=== PATIENT | male | born 1980 | race Caucasian/White ===

== ENCOUNTER 2018-11-01 08:46 | Inpatient (IN) | payer OTHER ==
[2018-11-01 09:33] VITALS: BMI 26.1
--- NOTE | 2018-11-01 10:17 | HP ---
CIWA Score Nausea/Vomitin Muscle Tremors: 2 Anxiety: 3 Agitation: 3 Paroxysmal Sweats: 1-Minimal Palms Moist Orientation: 0-Oriented Tacttile Disturbances: 1-Very Mild Itch/Numbness Auditory Disturbances: 0-None Visual Disturbances: 0-None Headache: 2-Mild CIWA-Ar Total Score: 15 - Admission Criteria [facility] Guidelines: Admission for Medically Managed Detox: Requires at least one of the followin. CIWA greater than 12 2. Seizures within the past 24 hours 3. Delirium tremens within the past 24 hours 4. Hallucinations within the past 24 hours 5. Acute intervention needed for co occurring medical disorder 6. Acute intervention needed for co occurring psychiatric disorder 7. Severe withdrawal that cannot be handled at a lower level of care (continued vomiting, continued diarrhea, abnormal vital signs) requiring intravenous medication and/or fluids 8. Admission ROS [facility] - [facility] Chief Complaint: i am here to stop drinking Allergies/Adverse Reactions: Allergies Allergy/AdvReac Type Severity Reaction Status Date / Time No Known Allergies Allergy Verified 11/01/18 09:19 History of Present Illness: this 37 years old male with alcohol dependence,seeking help to stop drinking, withdrawal symptom, seen in [facility] yesterday,receiving librium, extensive history of heavy alcohol consumption,multiple admissions in detox, last 09/27 at [facility] alcohol related seizure last 08/28 syncope alcohol related hepatitis c on medication now nicotine dependence 2 cigarette/day,does not need nicotine replacement no significant period of sobriety anxiety and depression plan for rehab after detox history of pancreatitis Exam Limitations: No Limitations - Ebola screening Have you traveled outside of the country in the last 21 days: No (N) Have you had contact with anyone from an Ebola affected area: No Do you have a fever: No - Review of Systems Constitutional: Loss of Appetite, Malaise, Night Sweats, Changes in sleep, Weakness EENT: reports: Tearing, Nose Congestion Respiratory: reports: No Symptoms reported Cardiac: reports: No Symptoms Reported GI: reports: Nausea, Poor Appetite, Abdominal cramping : reports: No Symptoms Reported Musculoskeletal: reports: Back Pain, Muscle Pain Integumentary: reports: Dryness Neuro: reports: Tremors Endocrine: reports: No Symptoms Reported Hematology: reports: No Symptoms Reported Psychiatric: reports: No Sypmtoms Reported, Judgement Intact, Mood/Affect Appropiate, Orientated x3, Anxious, Depressed, other Other Systems: Reviewed and Negative Patient History - Patient Medical History Hx Anemia: No Hx Asthma: No Hx Chronic Obstructive Pulmonary Disease (COPD): No Hx Cancer: No Hx Cardiac Disorders: No Hx Congestive Heart Failure: No Hx Hypertension: No Hx Hypercholesterolemia: No Hx Pacemaker: No HX Cerebrovascular Accident: No Hx Seizures: Yes (last 2 months) Hx Dementia: No Hx Diabetes: No Hx Gastrointestinal Disorders: No Hx Liver Disease: No Hx Genitourinary Disorders: No Hx Sexually Transmitted Disorders: No Hx Renal Disease (ESRD): No Hx Thyroid Disease: No Hx Human Immunodeficiency Virus (HIV): No (03/30 last negative) Hx Hepatitis C: Yes (being treated on medication now ,need 4 more days) Hx Depression: Yes (anxiety) Hx Suicide Attempt: No Hx Bipolar Disorder: No Hx Schizophrenia: No Other Medical History: no suicidal,no homicidal - Patient Surgical History Past Surgical History: Yes Other Surgical History: rhinoplasty in 2003 - PPD History Previous Implant?: Yes Documented Results: Negative w/o proof Implanted On Prior [facility] Admission?: No PPD to be Administered?: No - Smoking Cessation Smoking history: Current every day smoker Have you smoked in the past 12 months: Yes Aproximately how many cigarettes per day: 2 Cigars Per Day: 0 Hx Chewing Tobacco Use: No Initiated information on smoking cessation: No 'Breaking Loose' booklet given: 11/01/18 - Substance & Tx. History Hx Alcohol Use: Yes Hx Substance Use: No Substance Use Type: Alcohol Hx Substance Use Treatment: Yes ([facility] in 09/27) - Substances abused Alcohol Substance route: Oral Frequency: Daily Amount used: 4 CANS OF BEES (24 OUNCES), 1 PINT VODKA Age of first use: 30 Date of last use: 10/31/18 Family Disease History - Family Disease History Family Disease History: CA: Grandparent (alcohol,liver,pancrease), Other: Grandparent, Mother (multiple sclerosis) Admission Physical Exam [facility] - Vital Signs Vital Signs: Vital Signs - 24 hr 11/01/18 11/01/18 09:28 10:02 Temperature 97.6 F 97.6 F Pulse Rate 73 73 Respiratory 18 18 Rate Blood Pressure 133/92 133/92 - Physical General Appearance: Yes: Moderate Distress, Tremorous, Irritable, Sweating, Anxious HEENTM: Yes: Normal ENT Inspection, [place], Pharynx Normal Respiratory: Yes: Lungs Clear, Normal Breath Sounds, No Respiratory Distress Neck: Yes: Within Normal Limits, Supple, Trachea in good position Breast: Yes: Within Normal Limits Cardiology: Yes: Within Normal Limits, Regular Rhythm, Regular Rate, S1, S2 Abdominal: Yes: Within Normal Limits, Normal Bowel Sounds, Non Tender, Soft Genitourinary: Yes: Within Normal Limits Back: Yes: Muscle Spasm Musculoskeletal: Yes: Back pain, Muscle Pain Extremities: Yes: Tremors 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 NML intact, Fully Oriented, Alert, Motor Strength 5/5 Integumentary: Yes: Dry Lymphatic: Yes: Within Normal Limits - Diagnostic (1) Alcohol dependence with uncomplicated withdrawal Current Visit: Yes Status: Acute (2) Alcohol related seizure Current Visit: Yes Status: Acute (3) Syncope Current Visit: Yes Status: Acute (4) Nicotine dependence Current Visit: Yes Status: Chronic (5) Insomnia secondary to depression with anxiety Current Visit: Yes Status: Acute (6) Hepatitis C Current Visit: Yes Status: Acute (7) History of pancreatitis Current Visit: Yes Status: Acute Cleared for Admission S - Detox or Rehab [facility] Level of Care: Medically Managed (ativan detox) Breathalyzer - Breathalyzer Breathalyzer: 0.060 Urine Drug Screen - Test Device Lot number: [id number] Expiration date: 08/09/20 - Control Is test valid?: Yes - Results Drug screen NEGATIVE: No Urine drug screen results: BZO-Benzodiazepines Inpatient Rehab Admission - Rehab Decision to Admit Inpatient rehab admission?: No
[2018-11-01] MEDS ORDERED: MAGNESIUM CITRATE 300 ML BOTTLE PO PRN (10:32)
[2018-11-01] MEDS ORDERED: IBUPROFEN 400 MG TABLET (FP) PO PRN (10:32)
[2018-11-01] MEDS ORDERED: METHOCARBAMOL 500 MG TABLET PO PRN (10:32)
[2018-11-01] MEDS ORDERED: MENTHOL/PHENOL 1 EACH UD MM PRN (10:32)
[2018-11-01] MEDS ORDERED: MAG HYDROX/AL HYDROX/SIMETH 30 ML UNIT-DOSE CUP PO PRN (10:32)
[2018-11-01] MEDS ORDERED: BISMUTH SUBSALICYLATE 524 MG/30 ML UD PO PRN (10:32)
[2018-11-01] MEDS ORDERED: MAGNESIUM HYDROX 2400MG/30ML ORAL SUSPENSION 30 ML CUP PO PRN (10:32)
[2018-11-01] MEDS ORDERED: LORazepam 1 MG TABLET PO PRN (10:32)
[2018-11-01] MEDS ORDERED: hydrOXYzine PAMOATE 25 MG CAPSULE (FP) PO PRN (10:32)
[2018-11-01] MEDS ORDERED: ACETAMINOPHEN 325 MG TABLET (FP) PO PRN ×2 (10:32)
[2018-11-01] MEDS ORDERED: PATIENT'S OWN MEDICATION (NON-FORMULARY) (Glecaprevir/Pibrentasvir [Mavyret 100-40 Mg Tabl PO SCH (10:45)
[2018-11-01] MEDS: ESCITALOPRAM OXALATE 20 MG TABLET (FP) PO SCH (11:31)
--- NOTE | 2018-11-01 11:47 | EKG ---
Test Reason : Blood Pressure : / mmHG Vent. Rate : 061 BPM Atrial Rate : 061 BPM P-R Int : 144 ms QRS Dur : 092 ms QT Int : 462 ms P-R-T Axes : 038 039 038 degrees QTc Int : 465 ms NORMAL SINUS RHYTHM NORMAL ECG NO PREVIOUS ECGS AVAILABLE Confirmed by KECIA MARTÍNEZ MD ([id number]) on 11/01/2018 11:46:34 AM Referred By: Confirmed By:KECIA MARTÍNEZ MD
[2018-11-01 14:49] LABS: HEMATOCRIT 36.5 % (35.4-49); HEMOGLOBIN 12.3 GM/dL (11.7-16.9); MCH 28.6 pg (25.7-33.7); MCHC 33.7 g/dl (32.0-35.9); MEAN CELL VOLUME 84.9 fl (80-96); MEAN PLT VOLUME 7.9 fl (7.5-11.1); PLATELET COUNT 238 K/MM3 (134-434); RDW 15.1 % (11.9-15.9); WHITE BLOOD COUNT 4.4 K/mm3 (4.0-10.0)
[2018-11-01 15:49] LABS: ALBUMIN 4.4 g/dl (3.4-5.0); BILIRUBIN,TOTAL 0.4 mg/dL (0.2-1); BLOOD UREA NITROGEN 9.8 mg/dL (7-18); CALCIUM 8.9 mg/dL (8.5-10.1); CREATININE 0.7 mg/dL (0.55-1.3); POTASSIUM 3.7 mmol/L (3.5-5.1); TOT PROT 9.1 g/dl (6.4-8.2)
[2018-11-01] MEDS: SELENIUM SULFIDE 2.5% LOTION 4 OZ. TP SCH (15:49)
--- NOTE | 2018-11-01 17:06 | PN ---
S Progress Note Note: Psychiatric nurs practitioner note: Senior Business Broker approached patient for psychiatric consultation. Patient reports feeling too tired to speak to jingle writer. Psychiatric consultation deferred.
[2018-11-01] MEDS: LORazepam 2 MG TABLET PO SCH ×2 (17:19→22:13)
[2018-11-01] MEDS: THIAMINE HCL 100 MG TABLET (FP) PO SCH (22:13)
[2018-11-01] MEDS: MELATONIN 5 MG TABLETS PO PRN (22:13)
[2018-11-02] MEDS: LORazepam 2 MG TABLET PO SCH ×4 (06:16→22:51)
[2018-11-02] MEDS: PATIENT'S OWN MEDICATION (NON-FORMULARY) (Glecaprevir/Pibrentasvir [Mavyret 100-40 Mg Tabl PO SCH (10:15)
[2018-11-02] MEDS: ESCITALOPRAM OXALATE 20 MG TABLET (FP) PO SCH (10:15)
[2018-11-02] MEDS: PRENATAL VITAMINS W/ FOLIC ACID TABLET (FP) PO SCH (10:15)
[2018-11-02] MEDS: SELENIUM SULFIDE 2.5% LOTION 4 OZ. TP SCH (10:18)
--- NOTE | 2018-11-02 11:28 | PN ---
S CIWA - CIWA Score Nausea/Vomitin-No Nausea/No Vomiting Muscle Tremors: 2 Anxiety: 3 Agitation: 0-Normal Activity Paroxysmal Sweats: 3 Orientation: 0-Oriented Tacttile Disturbances: 0-None Auditory Disturbances: 0-None Visual Disturbances: 0-None Headache: 2-Mild CIWA-Ar Total Score: 10 S Progress Note (SOAP) Subjective: c/o mild shakes, headache, anxiety, and sweats. Objective: 11/02/18 11:28 Vital Signs 11/02/18 11/02/18 11/02/18 04:15 06:00 09:54 Temperature 97.3 F L 97.3 F L Pulse Rate 54 L 58 L Respiratory 18 18 16 Rate Blood Pressure 123/73 134/72 Lab Results WBC 4.4 K/mm3 (4.0-10.0) 11/01/18 11:00 RBC 4.30 M/mm3 (4.00-5.60) 11/01/18 11:00 Hgb 12.3 GM/dL (11.7-16.9) 11/01/18 11:00 Hct 36.5 % (35.4-49) 11/01/18 11:00 MCV 84.9 fl (80-96) 11/01/18 11:00 MCHC 33.7 g/dl (32.0-35.9) 11/01/18 11:00 RDW 15.1 % (11.9-15.9) 11/01/18 11:00 Plt Count 238 K/MM3 (134-434) 11/01/18 11:00 Sodium 140 mmol/L (136-145) 11/01/18 11:00 Potassium 3.7 mmol/L (3.5-5.1) 11/01/18 11:00 Chloride 103 mmol/L (98-107) 11/01/18 11:00 Carbon Dioxide 29 mmol/L (21-32) 11/01/18 11:00 Anion Gap 8 MMOL/L (8-16) 11/01/18 11:00 BUN 9.8 mg/dL (7-18) 11/01/18 11:00 Creatinine 0.7 mg/dL (0.55-1.3) 11/01/18 11:00 Random Glucose 103 mg/dL (74-106) 11/01/18 11:00 Calcium 8.9 mg/dL (8.5-10.1) 11/01/18 11:00 Labs noted. Assessment: 11/02/18 11:28 AOX3, in no acute respiratory distress. Full ROM, ambulating in the unit. Withdrawal symptoms. Plan: continue detox.
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
[2018-11-02] MEDS: THIAMINE HCL 100 MG TABLET (FP) PO SCH (22:51)
[2018-11-02] MEDS: MELATONIN 5 MG TABLETS PO PRN (22:53)
[2018-11-03] MEDS: LORazepam 1 MG TABLET PO SCH ×4 (05:35→22:42)
[2018-11-03] MEDS: PATIENT'S OWN MEDICATION (NON-FORMULARY) (Glecaprevir/Pibrentasvir [Mavyret 100-40 Mg Tabl PO SCH (10:01)
[2018-11-03] MEDS: PRENATAL VITAMINS W/ FOLIC ACID TABLET (FP) PO SCH (10:02)
[2018-11-03] MEDS: ESCITALOPRAM OXALATE 20 MG TABLET (FP) PO SCH (10:02)
[2018-11-03] MEDS: SELENIUM SULFIDE 2.5% LOTION 4 OZ. TP SCH (10:02)
--- NOTE | 2018-11-03 15:07 | PN ---
S CIWA - CIWA Score Nausea/Vomitin-Mild Nausea/No Vomiting Muscle Tremors: None Anxiety: 3 Agitation: 2 Paroxysmal Sweats: 3 Orientation: 0-Oriented Tacttile Disturbances: 0-None Auditory Disturbances: 0-None Visual Disturbances: 0-None Headache: 0-None Present CIWA-Ar Total Score: 9 BHS Progress Note (SOAP) Subjective: Tremor, sweating, interrupted sleep Objective: 11/03/18 15:04 Last Vital Signs Temp Pulse Resp BP Pulse Ox 97.5 F L 71 16 133/106 H 11/03/18 09:31 11/03/18 09:31 11/03/18 09:31 11/03/18 09:31 Elevated b/p 133/106 (denies htn) Laboratory Tests 11/01/18 11/01/18 11/01/18 11:00 11:00 11:00 WBC 4.4 RBC 4.30 Hgb 12.3 Hct 36.5 MCV 84.9 MCH 28.6 MCHC 33.7 RDW 15.1 Plt Count 238 MPV 7.9 Sodium 140 Potassium 3.7 Chloride 103 Carbon Dioxide 29 Anion Gap 8 BUN 9.8 Creatinine 0.7 Est GFR (CKD-EPI)AfAm 141.70 Est GFR (CKD-EPI)NonAf 122.26 Random Glucose 103 Calcium 8.9 Total Bilirubin 0.4 AST 57 H ALT 55 Alkaline Phosphatase 108 Total Protein 9.1 H Albumin 4.4 RPR Titer Nonreactive Labs reviewed: total protein elevated (9.1) Assessment: 11/03/18 15:07 Withdrawal sxs Noted with elevated blood pressure and elevated total protein Plan: Continue detox Encouraged PO water intake Elevated b/p: clonidine prn Elevated total protein: could be r/t dehydration; encouraged to drink more water , repeat hepatic function panel, check UA
[2018-11-03] MEDS ORDERED: cloNIDine HCL 0.1 MG TABLET PO PRN (15:09)
[2018-11-03] MEDS: THIAMINE HCL 100 MG TABLET (FP) PO SCH (22:42)
[2018-11-03] MEDS: MELATONIN 5 MG TABLETS PO PRN (22:43)
[2018-11-04] MEDS ORDERED: LORazepam 0.5 MG TABLET PO PRN
[2018-11-04] MEDS: LORazepam 0.5 MG TABLET PO SCH ×4 (05:49→22:09)
[2018-11-04] MEDS: PRENATAL VITAMINS W/ FOLIC ACID TABLET (FP) PO SCH (10:08)
[2018-11-04] MEDS: ESCITALOPRAM OXALATE 20 MG TABLET (FP) PO SCH (10:09)
[2018-11-04] MEDS: PATIENT'S OWN MEDICATION (NON-FORMULARY) (Glecaprevir/Pibrentasvir [Mavyret 100-40 Mg Tabl PO SCH (10:09)
[2018-11-04] MEDS: SELENIUM SULFIDE 2.5% LOTION 4 OZ. TP SCH (10:11)
[2018-11-04 12:20] LABS: ALBUMIN 4.4 g/dl (3.4-5.0); BILIRUBIN,DIRECT 0.2 mg/dL (0.0-0.2); BILIRUBIN,TOTAL 0.5 mg/dL (0.2-1); TOT PROT 9.1 g/dl (6.4-8.2)
--- NOTE | 2018-11-04 13:21 | PN ---
[facility] CIWA - CIWA Score Nausea/Vomitin-Mild Nausea/No Vomiting Muscle Tremors: 2 Anxiety: 1-Mildly Anxious Agitation: 1-Slight > Activity Paroxysmal Sweats: No Perspiration Orientation: 0-Oriented Tacttile Disturbances: 0-None Auditory Disturbances: 0-None Visual Disturbances: 0-None Headache: 0-None Present CIWA-Ar Total Score: 5 BHS Progress Note (SOAP) Subjective: pt has no complaints O: Vital Signs - 24 hr 11/03/18 11/04/18 11/04/18 21:25 00:30 03:00 Temperature 99.0 F Pulse Rate 94 H Respiratory 16 18 18 Rate Blood Pressure 133/85 11/04/18 11/04/18 06:00 09:22 Temperature 97.3 F L 97.9 F Pulse Rate 58 L 70 Respiratory 18 18 Rate Blood Pressure 127/72 121/52 L Laboratory Tests 11/01/18 11/01/18 11/01/18 11:00 11:00 11:00 WBC 4.4 RBC 4.30 Hgb 12.3 Hct 36.5 MCV 84.9 MCH 28.6 MCHC 33.7 RDW 15.1 Plt Count 238 MPV 7.9 Sodium 140 Potassium 3.7 Chloride 103 Carbon Dioxide 29 Anion Gap 8 BUN 9.8 Creatinine 0.7 Est GFR (CKD-EPI)AfAm 141.70 Est GFR (CKD-EPI)NonAf 122.26 Random Glucose 103 Calcium 8.9 Total Bilirubin 0.4 Direct Bilirubin AST 57 H ALT 55 Alkaline Phosphatase 108 Total Protein 9.1 H Albumin 4.4 RPR Titer Nonreactive 11/04/18 08:23 WBC RBC Hgb Hct MCV MCH MCHC RDW Plt Count MPV Sodium Potassium Chloride Carbon Dioxide Anion Gap BUN Creatinine Est GFR (CKD-EPI)AfAm Est GFR (CKD-EPI)NonAf Random Glucose Calcium Total Bilirubin 0.5 Direct Bilirubin 0.2 AST 36 ALT 44 Alkaline Phosphatase 103 Total Protein 9.1 H Albumin 4.4 RPR Titer alert and oriented a/p: continue alcohol detox protocol pt doing well
[2018-11-04 21:22] VITALS: TEMP 97.7
[2018-11-04] MEDS: MELATONIN 5 MG TABLETS PO PRN (22:09)
[2018-11-04] MEDS: THIAMINE HCL 100 MG TABLET (FP) PO SCH (22:09)
[2018-11-05] MEDS ORDERED: LORazepam 0.5 MG TABLET PO ONE (05:00)
[2018-11-05 07:04] VITALS: BP 104/58; PULSE 60
[2018-11-05] MEDS: ESCITALOPRAM OXALATE 20 MG TABLET (FP) PO SCH (09:00)
[2018-11-05] MEDS: PATIENT'S OWN MEDICATION (NON-FORMULARY) (Glecaprevir/Pibrentasvir [Mavyret 100-40 Mg Tabl PO SCH (09:01)
[2018-11-05] MEDS: PRENATAL VITAMINS W/ FOLIC ACID TABLET (FP) PO SCH (09:01)
[2018-11-05] MEDS: SELENIUM SULFIDE 2.5% LOTION 4 OZ. TP SCH (09:02)
--- NOTE | 2018-11-05 09:48 | DS ---
[facility] Detox Discharge Summary Admission Date: 11/01/18 Discharge Date: 11/05/18 - History Present History: Alcohol Dependence - Physical Exam Results Vital Signs: Vital Signs Temperature 97.7 F 11/05/18 07:03 Pulse Rate 60 11/05/18 07:03 Respiratory Rate 18 11/05/18 07:03 Blood Pressure 104/58 L 11/05/18 07:03 O2 Sat by Pulse Oximetry (%) Pertinent Admission Physical Exam Findings: pt arrived in withdrawals Laboratory Tests 11/01/18 11/01/18 11/01/18 11:00 11:00 11:00 WBC 4.4 RBC 4.30 Hgb 12.3 Hct 36.5 MCV 84.9 MCH 28.6 MCHC 33.7 RDW 15.1 Plt Count 238 MPV 7.9 Sodium 140 Potassium 3.7 Chloride 103 Carbon Dioxide 29 Anion Gap 8 BUN 9.8 Creatinine 0.7 Est GFR (CKD-EPI)AfAm 141.70 Est GFR (CKD-EPI)NonAf 122.26 Random Glucose 103 Calcium 8.9 Total Bilirubin 0.4 Direct Bilirubin AST 57 H ALT 55 Alkaline Phosphatase 108 Total Protein 9.1 H Albumin 4.4 RPR Titer Nonreactive 11/04/18 08:23 WBC RBC Hgb Hct MCV MCH MCHC RDW Plt Count MPV Sodium Potassium Chloride Carbon Dioxide Anion Gap BUN Creatinine Est GFR (CKD-EPI)AfAm Est GFR (CKD-EPI)NonAf Random Glucose Calcium Total Bilirubin 0.5 Direct Bilirubin 0.2 AST 36 ALT 44 Alkaline Phosphatase 103 Total Protein 9.1 H Albumin 4.4 RPR Titer today pt is aaox3 ambulating no acute distress no s/s of withdrawals - Treatment Hospital Course: Detox Protocol Followed, Detoxed Safely, Responded well, Discharged Condition Good, Rehab Referral Accepted Patient has Accepted a Rehab Referral to: referred to outpatient - Medication Discharge Medications: Ambulatory Orders Escitalopram Oxalate [Lexapro -] 20 mg PO DAILY 11/01/18 Folic Acid - 1 mg PO DAILY 11/01/18 Glecaprevir/Pibrentasvir [Mavyret 100-40 mg Tablet] 3 tab PO DAILY 11/01/18 Magnesium Oxide [Magnesium] 400 mg PO TID 11/01/18 Selenium Sulfide [Selenium Sulfide 2.25% Shampoo] 1 applic TP DAILY 11/01/18 Thiamine Mononitrate [Vitamin B-1] 100 mg PO DAILY 11/01/18 - Diagnosis (1) Alcohol dependence with uncomplicated withdrawal Current Visit: Yes Status: Chronic (2) Hepatitis C Current Visit: Yes Status: Chronic Qualifiers: Viral hepatitis chronicity: chronic Hepatic coma status: without hepatic coma Qualified Code(s): B18.2 - Chronic viral hepatitis C (3) History of pancreatitis Current Visit: Yes Status: Chronic (4) Insomnia secondary to depression with anxiety Current Visit: Yes Status: Chronic (5) Syncope Current Visit: Yes Status: Chronic (6) History of depression Current Visit: Yes Status: Chronic (7) History of posttraumatic stress disorder (PTSD) Current Visit: Yes Status: Chronic (8) Nicotine dependence Current Visit: Yes Status: Chronic Qualifiers: Nicotine product type: cigarettes Substance use status: uncomplicated Qualified Code(s): F17.210 - Nicotine dependence, cigarettes, uncomplicated - AMA Did Patient Leave Against Medical Advice: No
== END 2018-11-05 09:26 | disposition home or self-care (01) | DRG 775 ==
LOC: YASAS 08:46 → Y6N 10:54
PROVIDERS: ADMIT Surgery; ATTEND Surgery
PROC: HZ2ZZZZ Detoxification Services for Substance Abuse Treatment (ICD-10-PCS; principal; 2018-11-01)
DX: F10.230 Alcohol dependence with withdrawal, uncomplicated (principal); F17.210 Nicotine dependence, cigarettes, uncomplicated; F51.05 Insomnia due to other mental disorder; F32.9 Major depressive disorder, single episode, unspecified; B18.2 Chronic viral hepatitis C; G40.509 Epileptic seizures related to external causes, not intractable, without status epilepticus; Z86.59 Personal history of other mental and behavioral disorders; Z87.19 Personal history of other diseases of the digestive system; R55 Syncope and collapse
CPT/HCPCS: 36415; 80053; 80076; 85027; 86480; 86593; 93005; 93010

== ENCOUNTER 2019-01-13 14:22 | Inpatient (IN) | payer OTHER ==
--- NOTE | 2019-01-13 14:29 | HP ---
CIWA Score Nausea/Vomitin-No Nausea/No Vomiting Muscle Tremors: 4-Moderate,w/Arms Extend Anxiety: 4-Mod. Anxious/Guarded Agitation: 4-Moderately Restless Paroxysmal Sweats: 3 Orientation: 0-Oriented Tacttile Disturbances: 0-None Auditory Disturbances: 0-None Visual Disturbances: 0-None Headache: 1-Very Mild CIWA-Ar Total Score: 16 - Admission Criteria OASAS Guidelines: Admission for Medically Managed Detox: Requires at least one of the followin. CIWA greater than 12 2. Seizures within the past 24 hours 3. Delirium tremens within the past 24 hours 4. Hallucinations within the past 24 hours 5. Acute intervention needed for co occurring medical disorder 6. Acute intervention needed for co occurring psychiatric disorder 7. Severe withdrawal that cannot be handled at a lower level of care (continued vomiting, continued diarrhea, abnormal vital signs) requiring intravenous medication and/or fluids 8. Admitting History and Physical - Primary Care Physician PCP: - Admission Chief Complaint: I am here for detox. I was at [facility] [place] overnight for alcohol detox. History Source: Patient Limitations to Obtaining History: No Limitations - Past Medical History [employer]: Yes: Seizure (ETOH related seizure last one a week ago) Psych: Yes: Depression ENT: Yes: Other Dermatology: Yes: Eczema - Past Surgical History Past Surgical History: Yes: None - Smoking History Smoking history: Current every day smoker Have you smoked in the past 12 months: Yes Aproximately how many cigarettes per day: 3 - Alcohol/Substance Use Hx Alcohol Use: Yes History of Substance Use: reports: None - Social History Usual Living Arrangement: Yes: Alone, Other (has a roommate) Do you think of yourself as: Panchal, Lesbian or Homosexual ADL: Independent History of Recent Travel: No Admission ROS [facility] Chief Complaint: I am here for detox. Allergies/Adverse Reactions: Allergies Allergy/AdvReac Type Severity Reaction Status Date / Time No Known Allergies Allergy Verified 11/01/18 09:19 History of Present Illness: Pt is a 38yrold male with a history of alcohol dependence seeking detox for treatment. Exam Limitations: No Limitations - Ebola screening Have you traveled outside of the country in the last 21 days: No (N) Have you had contact with anyone from an Ebola affected area: No Have you been sick,other than usual withdrawal symptoms: No Do you have a fever: No - Review of Systems Constitutional: Chills, Diaphoresis, Loss of Appetite, Night Sweats EENT: reports: Tearing Respiratory: reports: No Symptoms reported Cardiac: reports: Syncope GI: reports: Nausea, Poor Appetite, Poor Fluid Intake, Abdominal cramping : reports: No Symptoms Reported Musculoskeletal: reports: Back Pain Integumentary: reports: Dryness (on scalp), Flushing, Sweating Neuro: reports: Headache, Seizure (last seizure a week ago; on medication), Tingling Endocrine: reports: Excessive Sweating, Flushing, Intolerance to Cold, Intolerance to Heat Hematology: reports: No Symptoms Reported Psychiatric: reports: Judgement Intact, Mood/Affect Appropiate, Orientated x3, Agitated, Anxious Other Systems: Reviewed and Negative Patient History - Patient Medical History Hx Anemia: No Hx Asthma: No Hx Chronic Obstructive Pulmonary Disease (COPD): No Hx Cancer: No Hx Cardiac Disorders: No Hx Congestive Heart Failure: No Hx Hypertension: No Hx Hypercholesterolemia: No Hx Pacemaker: No HX Cerebrovascular Accident: No Hx Seizures: Yes (last 1 week ago) Hx Dementia: No Hx Diabetes: No Hx Gastrointestinal Disorders: No Hx Liver Disease: No Hx Genitourinary Disorders: No Hx Sexually Transmitted Disorders: No Hx Renal Disease (ESRD): No Hx Thyroid Disease: No Hx Human Immunodeficiency Virus (HIV): No (03/30 last negative) Hx Hepatitis C: Yes (being treated on medication now ,need 4 more days) Hx Depression: Yes (anxiety) Hx Suicide Attempt: No Hx Bipolar Disorder: No Hx Schizophrenia: No Other Medical History: PTSD - Patient Surgical History Past Surgical History: Yes Other Surgical History: rhinoplasty in 2003 - PPD History Previous Implant?: Yes Documented Results: Negative w/proof Implanted On Prior R Admission?: No PPD to be Administered?: No - Reproductive History Patient is a Female of Child Bearing Age (11 -55 yrs old): No - Smoking Cessation Smoking history: Current every day smoker Have you smoked in the past 12 months: Yes Aproximately how many cigarettes per day: 3 Cigars Per Day: 0 Hx Chewing Tobacco Use: No Initiated information on smoking cessation: Yes 'Breaking Loose' booklet given: 01/13/19 - Substance & Tx. History Hx Alcohol Use: Yes Hx Substance Use: No Substance Use Type: Alcohol Hx Substance Use Treatment: Yes (last detox 10/2018) - Substances abused Alcohol Substance route: Oral Frequency: Daily Amount used: 4 CANS OF BEES (24 OUNCES), 1 PINT VODKA Age of first use: 30 Date of last use: 10/31/18 Admission Physical Exam [facility] - Physical General Appearance: Yes: Appropriately Dressed, Moderate Distress, Tremorous, Irritable, Sweating, Anxious HEENTM: Yes: Normocephalic, Normal Voice, Hearing Decreased, Nasal Congestion, Rhinorrhea Respiratory: Yes: Lungs Clear, Normal Breath Sounds, No Respiratory Distress Neck: Yes: No masses,lesions,Nodules Breast: Yes: Within Normal Limits Cardiology: Yes: Regular Rhythm, Regular Rate, S1, S2 Abdominal: Yes: Normal Bowel Sounds, Non Tender, Soft Genitourinary: Yes: Within Normal Limits Back: Yes: Normal Inspection Musculoskeletal: Yes: full range of Motion, Back pain Extremities: Yes: Normal Capillary Refill, Normal Inspection, Tremors Neurological: Yes: Fully Oriented, Alert, Normal Response Integumentary: Yes: Within Normal Limits, Normal Color, Diaphoresis Lymphatic: Yes: Within Normal Limits - Diagnostic (1) Alcohol dependence with uncomplicated withdrawal Current Visit: Yes Status: Chronic (2) Hepatitis C Current Visit: Yes Status: Chronic Qualifiers: Viral hepatitis chronicity: chronic Hepatic coma status: without hepatic coma Qualified Code(s): B18.2 - Chronic viral hepatitis C (3) History of depression Current Visit: No Status: Chronic (4) History of pancreatitis Current Visit: No Status: Chronic (5) History of posttraumatic stress disorder (PTSD) Current Visit: Yes Status: Chronic (6) Insomnia secondary to depression with anxiety Current Visit: No Status: Chronic (7) Nicotine dependence Current Visit: Yes Status: Chronic Qualifiers: Nicotine product type: cigarettes Substance use status: uncomplicated Qualified Code(s): F17.210 - Nicotine dependence, cigarettes, uncomplicated (8) Syncope Current Visit: Yes Status: Suspected Qualifiers: Syncope type: unspecified Qualified Code(s): R55 - Syncope and collapse Cleared for Admission [facility] - Detox or Rehab [facility] Level of Care: Medically Managed Detox Regimen/Protocol: Librium Breathalyzer - Breathalyzer Breathalyzer: 0.060 Urine Drug Screen - Test Device Lot number: [id number] Expiration date: 08/09/20 - Control Is test valid?: Yes - Results Drug screen NEGATIVE: No Urine drug screen results: BZO-Benzodiazepines Inpatient Rehab Admission - Rehab Decision to Admit Inpatient rehab admission?: No
[2019-01-13 14:32] VITALS: BMI 24.1
[2019-01-13] MEDS ORDERED: ONDANSETRON *ODT* 4 MG TABLET SL PRN (14:38)
[2019-01-13] MEDS ORDERED: MAG HYDROX/AL HYDROX/SIMETH 30 ML UNIT-DOSE CUP PO PRN (14:38)
[2019-01-13] MEDS ORDERED: MENTHOL/PHENOL 1 EACH UD MM PRN (14:38)
[2019-01-13] MEDS ORDERED: MELATONIN 5 MG TABLETS PO PRN (14:38)
[2019-01-13] MEDS ORDERED: MAGNESIUM CITRATE 300 ML BOTTLE PO PRN (14:38)
[2019-01-13] MEDS ORDERED: IBUPROFEN 400 MG TABLET (FP) PO PRN (14:38)
[2019-01-13] MEDS ORDERED: MAGNESIUM HYDROX 2400MG/30ML ORAL SUSPENSION 30 ML CUP PO PRN (14:38)
[2019-01-13] MEDS ORDERED: ACETAMINOPHEN 325 MG TABLET (FP) PO PRN ×2 (14:38)
[2019-01-13] MEDS ORDERED: BISMUTH SUBSALICYLATE 262 MG/15 ML BTL PO PRN (14:38)
[2019-01-13] MEDS: chlordiazePOXIDE HCL 25 MG CAPSULE PO PRN ×2 (15:25→20:11)
[2019-01-13] MEDS: METHOCARBAMOL 500 MG TABLET PO PRN (15:25)
[2019-01-13] MEDS ORDERED: chlordiazePOXIDE HCL 25 MG CAPSULE PO ONE ×2 (15:50→18:15)
[2019-01-13 16:09] LABS: HEMATOCRIT 37.6 % (35.4-49); MCH 29.6 pg (25.7-33.7); MCHC 34.5 g/dl (32.0-35.9); MEAN CELL VOLUME 85.7 fl (80-96); MEAN PLT VOLUME 8.2 fl (7.5-11.1); PLATELET COUNT 421 K/MM3 (134-434); RBC 4.39 M/mm3 (4.00-5.60); RDW 15.2 % (11.9-15.9); WHITE BLOOD COUNT 6.5 K/mm3 (4.0-10.0)
[2019-01-13 16:20] LABS: ALBUMIN 4.5 g/dl (3.4-5.0); BILIRUBIN,TOTAL 0.6 mg/dL (0.2-1); BLOOD UREA NITROGEN 9.9 mg/dL (7-18); CALCIUM 9.6 mg/dL (8.5-10.1); CREATININE 0.8 mg/dL (0.55-1.3); POTASSIUM 4.1 mmol/L (3.5-5.1); TOT PROT 9.5 g/dl (6.4-8.2)
[2019-01-13] MEDS ORDERED: chlordiazePOXIDE HCL 25 MG CAPSULE PO SCH (17:00)
[2019-01-13] MEDS: hydrOXYzine PAMOATE 25 MG CAPSULE (FP) PO PRN (20:10)
[2019-01-13] MEDS: chlordiazePOXIDE HCL 25 MG CAPSULE PO SCH ×2 (22:31→22:40)
[2019-01-13] MEDS: THIAMINE HCL 100 MG TABLET (FP) PO SCH (22:32)
[2019-01-13] MEDS: levETIRAcetam 500 MG TABLET (FP) PO SCH (22:32)
[2019-01-14] MEDS: chlordiazePOXIDE HCL 25 MG CAPSULE PO SCH ×4 (05:45→22:27)
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
[2019-01-14] MEDS ORDERED: PATIENT'S OWN MEDICATION (NON-FORMULARY) (Glecaprevir/Pibrentasvir [Mavyret 100-40 Mg Tabl PO SCH (10:00)
[2019-01-14] MEDS: levETIRAcetam 500 MG TABLET (FP) PO SCH ×2 (10:33→22:26)
[2019-01-14] MEDS: PRENATAL VITAMINS W/ FOLIC ACID TABLET (FP) PO SCH (10:33)
[2019-01-14] MEDS: ESCITALOPRAM OXALATE 20 MG TABLET (FP) PO SCH (10:33)
[2019-01-14] MEDS: GABAPENTIN 300 MG CAPSULE (FP) PO SCH ×2 (10:33→22:26)
--- NOTE | 2019-01-14 12:03 | PN ---
S CIWA - CIWA Score Nausea/Vomitin-Mild Nausea/No Vomiting Muscle Tremors: 2 Anxiety: 2 Agitation: 2 Paroxysmal Sweats: No Perspiration Orientation: 0-Oriented Tacttile Disturbances: 1-Very Mild Itch/Numbness Auditory Disturbances: 0-None Visual Disturbances: 0-None Headache: 2-Mild CIWA-Ar Total Score: 10 BHS Progress Note (SOAP) Subjective: alert,irritable,anxious,interrupted sleep,tremor Objective: 01/14/19 12:03 Vital Signs Temperature 98.4 F 01/14/19 09:20 Pulse Rate 80 01/14/19 09:20 Respiratory Rate 18 01/14/19 09:20 Blood Pressure 139/76 01/14/19 09:20 O2 Sat by Pulse Oximetry (%) 01/14/19 12:03 Laboratory Last Values WBC 6.5 K/mm3 (4.0-10.0) 01/13/19 15:05 RBC 4.39 M/mm3 (4.00-5.60) 01/13/19 15:05 Hgb 13.0 GM/dL (11.7-16.9) 01/13/19 15:05 Hct 37.6 % (35.4-49) 01/13/19 15:05 MCV 85.7 fl (80-96) 01/13/19 15:05 MCH 29.6 pg (25.7-33.7) 01/13/19 15:05 MCHC 34.5 g/dl (32.0-35.9) 01/13/19 15:05 RDW 15.2 % (11.9-15.9) 01/13/19 15:05 Plt Count 421 K/MM3 (134-434) D 01/13/19 15:05 MPV 8.2 fl (7.5-11.1) 01/13/19 15:05 Sodium 136 mmol/L (136-145) 01/13/19 15:05 Potassium 4.1 mmol/L (3.5-5.1) 01/13/19 15:05 Chloride 99 mmol/L (98-107) 01/13/19 15:05 Carbon Dioxide 28 mmol/L (21-32) 01/13/19 15:05 Anion Gap 9 MMOL/L (8-16) 01/13/19 15:05 BUN 9.9 mg/dL (7-18) 01/13/19 15:05 Creatinine 0.8 mg/dL (0.55-1.3) 01/13/19 15:05 Est GFR (CKD-EPI)AfAm 133.20 01/13/19 15:05 Est GFR (CKD-EPI)NonAf 114.93 01/13/19 15:05 Random Glucose 82 mg/dL (74-106) 01/13/19 15:05 Calcium 9.6 mg/dL (8.5-10.1) 01/13/19 15:05 Total Bilirubin 0.6 mg/dL (0.2-1) 01/13/19 15:05 AST 48 U/L (15-37) H 01/13/19 15:05 ALT 60 U/L (13-61) 01/13/19 15:05 Alkaline Phosphatase 84 U/L (45-117) 01/13/19 15:05 Total Protein 9.5 g/dl (6.4-8.2) H 01/13/19 15:05 Albumin 4.5 g/dl (3.4-5.0) 01/13/19 15:05 01/14/19 12:04 rpr pending Assessment: 01/14/19 12:04 withdrawal symptom Plan: continue detox librium regimen
[2019-01-14] MEDS: chlordiazePOXIDE HCL 25 MG CAPSULE PO PRN (14:15)
[2019-01-14] MEDS: THIAMINE HCL 100 MG TABLET (FP) PO SCH (22:26)
[2019-01-14] MEDS: SUVOREXANT 10 MG TABLET PO PRN (22:28)
[2019-01-15] MEDS: chlordiazePOXIDE HCL 25 MG CAPSULE PO SCH ×4 (06:43→23:21)
--- NOTE | 2019-01-15 11:39 | PN ---
S CIWA - CIWA Score Nausea/Vomitin-Mild Nausea/No Vomiting Muscle Tremors: 1-None Visible, but [place] Anxiety: 2 Agitation: 2 Paroxysmal Sweats: No Perspiration Orientation: 0-Oriented Tacttile Disturbances: 1-Very Mild Itch/Numbness Auditory Disturbances: 0-None Visual Disturbances: 0-None Headache: 1-Very Mild CIWA-Ar Total Score: 8 BHS Progress Note (SOAP) Subjective: alert,irritable,anxious,interrupted sleep,pain in the body Objective: 01/15/19 11:38 Vital Signs Temperature 97.6 F 01/15/19 09:20 Pulse Rate 73 01/15/19 09:20 Respiratory Rate 18 01/15/19 09:20 Blood Pressure 122/78 01/15/19 09:20 O2 Sat by Pulse Oximetry (%) Laboratory Last Values WBC 6.5 K/mm3 (4.0-10.0) 01/13/19 15:05 RBC 4.39 M/mm3 (4.00-5.60) 01/13/19 15:05 Hgb 13.0 GM/dL (11.7-16.9) 01/13/19 15:05 Hct 37.6 % (35.4-49) 01/13/19 15:05 MCV 85.7 fl (80-96) 01/13/19 15:05 MCH 29.6 pg (25.7-33.7) 01/13/19 15:05 MCHC 34.5 g/dl (32.0-35.9) 01/13/19 15:05 RDW 15.2 % (11.9-15.9) 01/13/19 15:05 Plt Count 421 K/MM3 (134-434) D 01/13/19 15:05 MPV 8.2 fl (7.5-11.1) 01/13/19 15:05 Sodium 136 mmol/L (136-145) 01/13/19 15:05 Potassium 4.1 mmol/L (3.5-5.1) 01/13/19 15:05 Chloride 99 mmol/L (98-107) 01/13/19 15:05 Carbon Dioxide 28 mmol/L (21-32) 01/13/19 15:05 Anion Gap 9 MMOL/L (8-16) 01/13/19 15:05 BUN 9.9 mg/dL (7-18) 01/13/19 15:05 Creatinine 0.8 mg/dL (0.55-1.3) 01/13/19 15:05 Est GFR (CKD-EPI)AfAm 133.20 01/13/19 15:05 Est GFR (CKD-EPI)NonAf 114.93 01/13/19 15:05 Random Glucose 82 mg/dL (74-106) 01/13/19 15:05 Calcium 9.6 mg/dL (8.5-10.1) 01/13/19 15:05 Total Bilirubin 0.6 mg/dL (0.2-1) 01/13/19 15:05 AST 48 U/L (15-37) H 01/13/19 15:05 ALT 60 U/L (13-61) 01/13/19 15:05 Alkaline Phosphatase 84 U/L (45-117) 01/13/19 15:05 Total Protein 9.5 g/dl (6.4-8.2) H 01/13/19 15:05 Albumin 4.5 g/dl (3.4-5.0) 01/13/19 15:05 RPR Titer Nonreactive (NONREACTIVE) 01/13/19 15:05 Assessment: 01/15/19 11:38 withdrawal symptom Plan: continue detox librium regimen
[2019-01-15] MEDS: levETIRAcetam 500 MG TABLET (FP) PO SCH ×2 (11:50→22:32)
[2019-01-15] MEDS: ESCITALOPRAM OXALATE 20 MG TABLET (FP) PO SCH (11:50)
[2019-01-15] MEDS: PRENATAL VITAMINS W/ FOLIC ACID TABLET (FP) PO SCH (11:50)
[2019-01-15] MEDS: GABAPENTIN 300 MG CAPSULE (FP) PO SCH ×2 (11:50→22:32)
[2019-01-15] MEDS: THIAMINE HCL 100 MG TABLET (FP) PO SCH (22:32)
[2019-01-15] MEDS: SUVOREXANT 10 MG TABLET PO PRN (22:34)
[2019-01-16] MEDS ORDERED: chlordiazePOXIDE HCL 10 MG CAPSULE PO PRN
[2019-01-16] MEDS: chlordiazePOXIDE HCL 10 MG CAPSULE PO SCH ×4 (05:48→22:19)
[2019-01-16] MEDS: PRENATAL VITAMINS W/ FOLIC ACID TABLET (FP) PO SCH (10:28)
[2019-01-16] MEDS: ESCITALOPRAM OXALATE 20 MG TABLET (FP) PO SCH (10:28)
[2019-01-16] MEDS: levETIRAcetam 500 MG TABLET (FP) PO SCH ×2 (10:28→22:19)
[2019-01-16] MEDS: GABAPENTIN 300 MG CAPSULE (FP) PO SCH ×2 (10:28→22:19)
--- NOTE | 2019-01-16 10:38 | PN ---
[facility] Progress Note Note: Patient complains of sleeping poorly despite taking Belsomra 10 mg/hs/hs. Will increase Belsomra dosage to 15 mg/hs prn for insomnia
--- NOTE | 2019-01-16 10:42 | PN ---
[facility] CIWA - CIWA Score Nausea/Vomitin-No Nausea/No Vomiting Muscle Tremors: 1-None Visible, but [place] Anxiety: 2 Agitation: 2 Paroxysmal Sweats: No Perspiration Orientation: 0-Oriented Tacttile Disturbances: 0-None Auditory Disturbances: 0-None Visual Disturbances: 1-Very Mild Sensitivity Headache: 1-Very Mild CIWA-Ar Total Score: 7 BHS Progress Note (SOAP) Subjective: alert,irritable,anxious,interrupted sleep,pain in the body Objective: 01/16/19 10:41 Vital Signs Temperature 97.3 F L 01/16/19 10:20 Pulse Rate 66 01/16/19 10:20 Respiratory Rate 18 01/16/19 10:20 Blood Pressure 99/59 L 01/16/19 10:20 O2 Sat by Pulse Oximetry (%) Assessment: 01/16/19 10:41 withdrawal symptom Plan: continue detox librium regimen
[2019-01-16] MEDS ORDERED: SUVOREXANT 10 MG TABLET PO PRN (22:00)
[2019-01-16] MEDS: THIAMINE HCL 100 MG TABLET (FP) PO SCH (22:19)
[2019-01-16] MEDS: SUVOREXANT 10 MG TABLET PO PRN (22:21)
[2019-01-17] MEDS: chlordiazePOXIDE HCL 10 MG CAPSULE PO SCH ×2 (05:24→17:35)
[2019-01-17] MEDS: METHOCARBAMOL 500 MG TABLET PO PRN ×2 (05:38→12:45)
[2019-01-17] MEDS: hydrOXYzine PAMOATE 25 MG CAPSULE (FP) PO PRN ×3 (05:38→22:27)
[2019-01-17] MEDS ORDERED: HYDROCORTISONE 1% TOPICAL OINT 30 GM TUBE TP PRN (09:14)
[2019-01-17] MEDS: ESCITALOPRAM OXALATE 20 MG TABLET (FP) PO SCH (10:52)
[2019-01-17] MEDS: PRENATAL VITAMINS W/ FOLIC ACID TABLET (FP) PO SCH (10:52)
[2019-01-17] MEDS: GABAPENTIN 300 MG CAPSULE (FP) PO SCH ×2 (10:52→22:26)
[2019-01-17] MEDS: levETIRAcetam 500 MG TABLET (FP) PO SCH ×2 (10:52→22:26)
--- NOTE | 2019-01-17 12:42 | PN ---
S CIWA - CIWA Score Nausea/Vomitin-No Nausea/No Vomiting Muscle Tremors: 2 Anxiety: 1-Mildly Anxious Agitation: 1-Slight > Activity Paroxysmal Sweats: No Perspiration Orientation: 0-Oriented Tacttile Disturbances: 0-None Auditory Disturbances: 0-None Visual Disturbances: 0-None Headache: 0-None Present CIWA-Ar Total Score: 4 BHS Progress Note (SOAP) Subjective: anxiety mild shakes Objective: 01/17/19 12:41 Vital Signs Temperature 97.7 F 01/17/19 09:40 Pulse Rate 59 L 01/17/19 09:40 Respiratory Rate 16 01/17/19 09:40 Blood Pressure 98/57 L 01/17/19 09:40 O2 Sat by Pulse Oximetry (%) aaox3 ambulating no acute distress Assessment: 01/17/19 12:42 mild withdrawals Plan: continue detox d/c in am
[2019-01-17] MEDS: THIAMINE HCL 100 MG TABLET (FP) PO SCH (22:27)
[2019-01-17] MEDS ORDERED: SUVOREXANT 15 MG TABLET PO PRN (22:35)
[2019-01-18] MEDS: METHOCARBAMOL 500 MG TABLET PO PRN (01:22)
[2019-01-18] MEDS ORDERED: chlordiazePOXIDE HCL 10 MG CAPSULE PO ONE (05:00)
[2019-01-18] MEDS: hydrOXYzine PAMOATE 25 MG CAPSULE (FP) PO PRN (06:28)
--- NOTE | 2019-01-18 08:49 | DS ---
[facility] Detox Discharge Summary Admission Date: 01/13/19 Discharge Date: 01/18/19 - History Present History: Alcohol Dependence - Physical Exam Results Vital Signs: Vital Signs Temperature 97.3 F L 01/18/19 06:22 Pulse Rate 59 L 01/18/19 06:22 Respiratory Rate 18 01/18/19 06:22 Blood Pressure 136/84 01/18/19 06:22 O2 Sat by Pulse Oximetry (%) Pertinent Admission Physical Exam Findings: pt arrived in withdrawals Vital Signs Temperature 97.3 F L 01/18/19 06:22 Pulse Rate 59 L 01/18/19 06:22 Respiratory Rate 18 01/18/19 06:22 Blood Pressure 136/84 01/18/19 06:22 O2 Sat by Pulse Oximetry (%) Laboratory Tests 01/13/19 01/13/19 01/13/19 15:05 15:05 15:05 WBC 6.5 RBC 4.39 Hgb 13.0 Hct 37.6 MCV 85.7 MCH 29.6 MCHC 34.5 RDW 15.2 Plt Count 421 D MPV 8.2 Sodium 136 Potassium 4.1 Chloride 99 Carbon Dioxide 28 Anion Gap 9 BUN 9.9 Creatinine 0.8 Est GFR (CKD-EPI)AfAm 133.20 Est GFR (CKD-EPI)NonAf 114.93 Random Glucose 82 Calcium 9.6 Total Bilirubin 0.6 AST 48 H ALT 60 Alkaline Phosphatase 84 Total Protein 9.5 H Albumin 4.5 RPR Titer Nonreactive today pt is aaox3 ambulating no acute distress no s/s of withdrawals - Treatment Hospital Course: Detox Protocol Followed, Detoxed Safely, Responded well, Discharged Condition Good, Rehab Referral Accepted Patient has Accepted a Rehab Referral to: pt referred to inpatient rehab; [facility] - Medication Discharge Medications: Ambulatory Orders Escitalopram Oxalate [Lexapro -] 20 mg PO DAILY 11/01/18 Glecaprevir/Pibrentasvir [Mavyret 100-40 mg Tablet] 3 tab PO DAILY 11/01/18 Gabapentin [Neurontin -] 300 mg PO BID 01/13/19 levETIRAcetam [Keppra -] 500 mg PO BID 01/13/19 - Diagnosis (1) Alcohol dependence with uncomplicated withdrawal Current Visit: Yes Status: Chronic (2) Hepatitis C Current Visit: Yes Status: Inactive Qualifiers: Viral hepatitis chronicity: chronic Hepatic coma status: without hepatic coma Qualified Code(s): B18.2 - Chronic viral hepatitis C (3) History of depression Current Visit: No Status: Chronic (4) History of pancreatitis Current Visit: No Status: Resolved (5) History of posttraumatic stress disorder (PTSD) Current Visit: Yes Status: Chronic (6) Insomnia secondary to depression with anxiety Current Visit: No Status: Chronic (7) Nicotine dependence Current Visit: Yes Status: Chronic Qualifiers: Nicotine product type: cigarettes Substance use status: uncomplicated Qualified Code(s): F17.210 - Nicotine dependence, cigarettes, uncomplicated (8) Syncope Current Visit: Yes Status: Suspected Qualifiers: Syncope type: unspecified Qualified Code(s): R55 - Syncope and collapse - AMA Did Patient Leave Against Medical Advice: No
[2019-01-18 09:40] VITALS: BP 115/79; PULSE 71; TEMP 98.1
[2019-01-18] MEDS: GABAPENTIN 300 MG CAPSULE (FP) PO SCH (10:46)
[2019-01-18] MEDS: ESCITALOPRAM OXALATE 20 MG TABLET (FP) PO SCH (10:46)
[2019-01-18] MEDS: PRENATAL VITAMINS W/ FOLIC ACID TABLET (FP) PO SCH (10:46)
[2019-01-18] MEDS: levETIRAcetam 500 MG TABLET (FP) PO SCH (10:46)
== END 2019-01-18 12:18 | disposition other institution (70) | DRG 775 ==
LOC: YASAS 14:22 → Y6N 14:44
PROVIDERS: ADMIT Allergy & Immunology; ATTEND Allergy & Immunology
PROC: HZ2ZZZZ Detoxification Services for Substance Abuse Treatment (ICD-10-PCS; principal; 2019-01-13)
DX: F10.230 Alcohol dependence with withdrawal, uncomplicated (principal); F17.210 Nicotine dependence, cigarettes, uncomplicated; F10.280 Alcohol dependence with alcohol-induced anxiety disorder; F19.280 Other psychoactive substance dependence with psychoactive substance-induced anxiety disorder; F51.05 Insomnia due to other mental disorder; F32.9 Major depressive disorder, single episode, unspecified; F43.10 Post-traumatic stress disorder, unspecified; F33.1 Major depressive disorder, recurrent, moderate; F41.9 Anxiety disorder, unspecified; L30.9 Dermatitis, unspecified; B18.2 Chronic viral hepatitis C; G40.909 Epilepsy, unspecified, not intractable, without status epilepticus; Z87.19 Personal history of other diseases of the digestive system
CPT/HCPCS: 36415; 80053; 85027; 86593

== ENCOUNTER 2019-01-18 12:50 | Inpatient (IN) | payer OTHER ==
--- NOTE | 2019-01-18 11:56 | HP ---
[facility] Rehab Assess/Revision - Admission History Admitted to Rehab from[facility] - Findings Detox History & Physical reviewed: Yes Concur with findings: Yes Inpatient Rehab Admission - Rehab Decision to Admit Inpatient rehab admission?: Yes - Initial Determination Are CD services needed?: Yes Free of communicable disease: Yes Not in need of hospitalization: Yes - Rehab Admission Criteria Previous failed treatment: Yes Poor recovery environment: Yes Comorbidities: Yes Lacks judgement: Yes Patient is meeting Inpatient Rehab admission criteria:: Yes
[~2019-01-18 12:50] MED LIST: ACETAMINOPHEN 325 MG TABLET (FP) PO PRN; HYDROCORTISONE 1% TOPICAL CREAM 30 GM TUBE TP PRN; IBUPROFEN 400 MG TABLET (FP) PO PRN; LOPERAMIDE HCL 2 MG CAPSULE PO PRN; MAG HYDROX/AL HYDROX/SIMETH 30 ML UNIT-DOSE CUP PO PRN; MAGNESIUM CITRATE 300 ML BOTTLE PO PRN; MENTHOL/PHENOL 1 EACH UD MM PRN; P-EPHED 60MG/TRIPROLIDI 2.5MG TABLET PO PRN; guaiFENesin 200 MG/10 ML 10 ML UNIT-DOSE CUPS PO PRN
[2019-01-18] MEDS: levETIRAcetam 500 MG TABLET (FP) PO SCH (21:33)
[2019-01-18] MEDS: GABAPENTIN 300 MG CAPSULE (FP) PO SCH (21:33)
[2019-01-18] MEDS: MELATONIN 5 MG TABLETS PO PRN (21:33)
[2019-01-18] MEDS: THIAMINE HCL 100 MG TABLET (FP) PO SCH (21:33)
[2019-01-18] MEDS: hydrOXYzine PAMOATE 50 MG CAPSULE (FP) PO PRN (21:36)
[2019-01-18] MEDS ORDERED: SUVOREXANT 15 MG TABLET PO PRN (22:00)
[2019-01-19] MEDS: PRENATAL VITAMINS W/ FOLIC ACID TABLET (FP) PO SCH (10:30)
[2019-01-19] MEDS: levETIRAcetam 500 MG TABLET (FP) PO SCH ×2 (10:30→21:43)
[2019-01-19] MEDS: GABAPENTIN 300 MG CAPSULE (FP) PO SCH ×2 (10:30→21:43)
[2019-01-19] MEDS: ESCITALOPRAM OXALATE 20 MG TABLET (FP) PO SCH (10:30)
[2019-01-19] MEDS: THIAMINE HCL 100 MG TABLET (FP) PO SCH (21:43)
[2019-01-19] MEDS: MELATONIN 5 MG TABLETS PO PRN (21:44)
[2019-01-20] MEDS ORDERED: levETIRAcetam 250 MG TABLET (FP) PO ONE (09:05)
[2019-01-20] MEDS: ESCITALOPRAM OXALATE 20 MG TABLET (FP) PO SCH (10:30)
[2019-01-20] MEDS: PRENATAL VITAMINS W/ FOLIC ACID TABLET (FP) PO SCH (10:30)
[2019-01-20] MEDS: GABAPENTIN 300 MG CAPSULE (FP) PO SCH ×2 (10:30→21:34)
[2019-01-20] MEDS: levETIRAcetam 500 MG TABLET (FP) PO SCH ×2 (10:31→21:34)
--- NOTE | 2019-01-20 10:51 | PN ---
[facility] Progress Note Note: Pt is a 38 male who completed detox on and referred to rehab. Pt c/o chronic itchy,scaly rash on scalp and currently on hydrocortisone cream 1% QID. Pt reports he shaved his head today. Vital Signs - 24 hr 01/20/19 01/20/19 01/20/19 00:30 03:30 07:16 Temperature 97.7 F Pulse Rate 67 Respiratory 18 18 18 Rate Blood Pressure 111/74 Head:Normocephali,Atruamatic slightly red scaly lesions scattered on scalp of head. No pus or bleeding noted. A/P Scalp Dermatitis Change to hytone ointment 1% TP TID x 7 days. May consider selsun lotion 2.5 % TP, if safely indicated to bald head. Pt reports he has a primary care provider, Dr. Robb Carranza at [address] [place] [address]. D/w pt to follow up with PCP/Dermatology after rehab treatment.
[2019-01-20] MEDS: HYDROCORTISONE 1% TOPICAL OINT 30 GM TUBE TP SCH ×2 (14:02→21:36)
[2019-01-20] MEDS: THIAMINE HCL 100 MG TABLET (FP) PO SCH (21:34)
[2019-01-20] MEDS: hydrOXYzine PAMOATE 50 MG CAPSULE (FP) PO PRN (21:35)
[2019-01-20] MEDS: METHOCARBAMOL 500 MG TABLET PO PRN (21:35)
[2019-01-21] MEDS: HYDROCORTISONE 1% TOPICAL OINT 30 GM TUBE TP SCH ×3 (06:11→21:43)
[2019-01-21] MEDS: GABAPENTIN 300 MG CAPSULE (FP) PO SCH ×2 (10:02→21:31)
[2019-01-21] MEDS: ESCITALOPRAM OXALATE 20 MG TABLET (FP) PO SCH (10:02)
[2019-01-21] MEDS: PRENATAL VITAMINS W/ FOLIC ACID TABLET (FP) PO SCH (10:02)
[2019-01-21] MEDS: levETIRAcetam 500 MG TABLET (FP) PO SCH ×2 (10:02→21:31)
[2019-01-21] MEDS: THIAMINE HCL 100 MG TABLET (FP) PO SCH (21:31)
[2019-01-21] MEDS: MAGNESIUM HYDROX 2400MG/30ML ORAL SUSPENSION 30 ML CUP PO PRN (21:32)
[2019-01-21] MEDS: METHOCARBAMOL 500 MG TABLET PO PRN (21:33)
[2019-01-21] MEDS: hydrOXYzine PAMOATE 50 MG CAPSULE (FP) PO PRN (21:33)
[2019-01-22] MEDS: HYDROCORTISONE 1% TOPICAL OINT 30 GM TUBE TP SCH ×3 (07:15→21:35)
[2019-01-22] MEDS: levETIRAcetam 500 MG TABLET (FP) PO SCH ×2 (10:36→21:32)
[2019-01-22] MEDS: PRENATAL VITAMINS W/ FOLIC ACID TABLET (FP) PO SCH (10:36)
[2019-01-22] MEDS: GABAPENTIN 300 MG CAPSULE (FP) PO SCH ×2 (10:36→21:32)
[2019-01-22] MEDS: ESCITALOPRAM OXALATE 20 MG TABLET (FP) PO SCH (10:36)
[2019-01-22] MEDS: THIAMINE HCL 100 MG TABLET (FP) PO SCH (21:32)
[2019-01-22] MEDS: hydrOXYzine PAMOATE 50 MG CAPSULE (FP) PO PRN (21:32)
[2019-01-22] MEDS: MAGNESIUM HYDROX 2400MG/30ML ORAL SUSPENSION 30 ML CUP PO PRN (21:34)
[2019-01-22] MEDS: METHOCARBAMOL 500 MG TABLET PO PRN (21:34)
[2019-01-23] MEDS: HYDROCORTISONE 1% TOPICAL OINT 30 GM TUBE TP SCH ×3 (07:26→21:42)
[2019-01-23] MEDS: GABAPENTIN 300 MG CAPSULE (FP) PO SCH ×2 (10:52→21:41)
[2019-01-23] MEDS: ESCITALOPRAM OXALATE 20 MG TABLET (FP) PO SCH (10:52)
[2019-01-23] MEDS: PRENATAL VITAMINS W/ FOLIC ACID TABLET (FP) PO SCH (10:52)
[2019-01-23] MEDS: levETIRAcetam 500 MG TABLET (FP) PO SCH ×2 (10:52→21:41)
[2019-01-23] MEDS: THIAMINE HCL 100 MG TABLET (FP) PO SCH (21:41)
[2019-01-23] MEDS: hydrOXYzine PAMOATE 50 MG CAPSULE (FP) PO PRN (21:42)
[2019-01-23] MEDS: METHOCARBAMOL 500 MG TABLET PO PRN (21:42)
[2019-01-24] MEDS: HYDROCORTISONE 1% TOPICAL OINT 30 GM TUBE TP SCH ×3 (08:20→21:51)
[2019-01-24] MEDS: ESCITALOPRAM OXALATE 20 MG TABLET (FP) PO SCH (10:24)
[2019-01-24] MEDS: GABAPENTIN 300 MG CAPSULE (FP) PO SCH ×2 (10:24→21:50)
[2019-01-24] MEDS: levETIRAcetam 500 MG TABLET (FP) PO SCH ×2 (10:24→21:50)
[2019-01-24] MEDS: PRENATAL VITAMINS W/ FOLIC ACID TABLET (FP) PO SCH (10:24)
[2019-01-24] MEDS: METHOCARBAMOL 500 MG TABLET PO PRN (21:49)
[2019-01-24] MEDS: hydrOXYzine PAMOATE 50 MG CAPSULE (FP) PO PRN (21:50)
[2019-01-24] MEDS: THIAMINE HCL 100 MG TABLET (FP) PO SCH (21:50)
[2019-01-25] MEDS: HYDROCORTISONE 1% TOPICAL OINT 30 GM TUBE TP SCH ×3 (06:56→21:28)
[2019-01-25] MEDS: MAGNESIUM HYDROX 2400MG/30ML ORAL SUSPENSION 30 ML CUP PO PRN (06:56)
[2019-01-25] MEDS: levETIRAcetam 500 MG TABLET (FP) PO SCH ×2 (10:31→21:27)
[2019-01-25] MEDS: GABAPENTIN 300 MG CAPSULE (FP) PO SCH ×2 (10:31→21:27)
[2019-01-25] MEDS: ESCITALOPRAM OXALATE 20 MG TABLET (FP) PO SCH (10:31)
[2019-01-25] MEDS: PRENATAL VITAMINS W/ FOLIC ACID TABLET (FP) PO SCH (10:31)
[2019-01-25] MEDS: hydrOXYzine PAMOATE 50 MG CAPSULE (FP) PO PRN (21:27)
[2019-01-25] MEDS: THIAMINE HCL 100 MG TABLET (FP) PO SCH (21:27)
[2019-01-25] MEDS: METHOCARBAMOL 500 MG TABLET PO PRN (21:28)
[2019-01-26] MEDS: HYDROCORTISONE 1% TOPICAL OINT 30 GM TUBE TP SCH ×3 (08:05→21:34)
[2019-01-26] MEDS: ESCITALOPRAM OXALATE 20 MG TABLET (FP) PO SCH (10:04)
[2019-01-26] MEDS: PRENATAL VITAMINS W/ FOLIC ACID TABLET (FP) PO SCH (10:04)
[2019-01-26] MEDS: levETIRAcetam 500 MG TABLET (FP) PO SCH ×2 (10:04→21:34)
[2019-01-26] MEDS: GABAPENTIN 300 MG CAPSULE (FP) PO SCH ×2 (10:04→21:33)
[2019-01-26] MEDS ORDERED: levETIRAcetam 250 MG TABLET (FP) PO ONE (19:59)
[2019-01-26] MEDS: THIAMINE HCL 100 MG TABLET (FP) PO SCH (21:33)
[2019-01-26] MEDS: hydrOXYzine PAMOATE 50 MG CAPSULE (FP) PO PRN (21:34)
[2019-01-26] MEDS: METHOCARBAMOL 500 MG TABLET PO PRN (21:34)
[2019-01-27] MEDS: HYDROCORTISONE 1% TOPICAL OINT 30 GM TUBE TP SCH (07:36)
[2019-01-27] MEDS: levETIRAcetam 500 MG TABLET (FP) PO SCH ×2 (10:46→21:08)
[2019-01-27] MEDS: ESCITALOPRAM OXALATE 20 MG TABLET (FP) PO SCH (10:46)
[2019-01-27] MEDS: PRENATAL VITAMINS W/ FOLIC ACID TABLET (FP) PO SCH (10:46)
[2019-01-27] MEDS: GABAPENTIN 300 MG CAPSULE (FP) PO SCH ×2 (10:46→21:08)
[2019-01-27] MEDS: SELENIUM SULFIDE 2.5% LOTION 4 OZ. TP SCH (15:11)
[2019-01-27] MEDS: MELATONIN 5 MG TABLETS PO PRN (21:08)
[2019-01-27] MEDS: THIAMINE HCL 100 MG TABLET (FP) PO SCH (21:08)
[2019-01-27] MEDS: hydrOXYzine PAMOATE 50 MG CAPSULE (FP) PO PRN (21:08)
[2019-01-27] MEDS: METHOCARBAMOL 500 MG TABLET PO PRN (21:08)
[2019-01-28] MEDS: PRENATAL VITAMINS W/ FOLIC ACID TABLET (FP) PO SCH (10:20)
[2019-01-28] MEDS: GABAPENTIN 300 MG CAPSULE (FP) PO SCH ×2 (10:20→21:41)
[2019-01-28] MEDS: levETIRAcetam 500 MG TABLET (FP) PO SCH ×2 (10:20→21:41)
[2019-01-28] MEDS: ESCITALOPRAM OXALATE 20 MG TABLET (FP) PO SCH (10:20)
[2019-01-28] MEDS: SELENIUM SULFIDE 2.5% LOTION 4 OZ. TP SCH (10:21)
[2019-01-28] MEDS: METHOCARBAMOL 500 MG TABLET PO PRN (21:41)
[2019-01-28] MEDS: hydrOXYzine PAMOATE 50 MG CAPSULE (FP) PO PRN (21:41)
[2019-01-28] MEDS: THIAMINE HCL 100 MG TABLET (FP) PO SCH (21:42)
[2019-01-28] MEDS: MELATONIN 5 MG TABLETS PO PRN (21:42)
[2019-01-29] MEDS: GABAPENTIN 300 MG CAPSULE (FP) PO SCH ×2 (10:21→21:39)
[2019-01-29] MEDS: levETIRAcetam 500 MG TABLET (FP) PO SCH ×2 (10:21→21:38)
[2019-01-29] MEDS: ESCITALOPRAM OXALATE 20 MG TABLET (FP) PO SCH (10:21)
[2019-01-29] MEDS: PRENATAL VITAMINS W/ FOLIC ACID TABLET (FP) PO SCH (10:21)
[2019-01-29] MEDS: SELENIUM SULFIDE 2.5% LOTION 4 OZ. TP SCH (10:21)
--- NOTE | 2019-01-29 12:01 | PN ---
[facility] Progress Note Note: Pt is a 38 y/o male who was admitted to rehab from detox and scheduled for discharge in the morning. Pt is requesting early discharge to enable him take his mother to her medical appointment. Pt has been referred to CD aftercare at [facility]patient program on [address] Reported and treated rash on head/facial is getting better. Vital Signs - 24 hr 01/29/19 01/29/19 01/29/19 00:30 03:30 07:06 Temperature 97.3 F L Pulse Rate 67 Respiratory 18 18 18 Rate Blood Pressure 121/73 Alert o x 3 nad oob ambulating with steady cardiac:s1 s2,rrr lungs;cta,justina. abdomen:soft,+bs,nt,nd extremities/skin:no edema, full ROM,skin intact. Pt reminded to follow up with primary care and dermatology for medical needs. Pt reports he has his (" a lot " )Keppra and Gabapentin at home and does not need new Rx.
--- NOTE | 2019-01-29 12:06 | PN ---
S Progress Note Note: Patient is scheduled for discharge adriana. Scripts for 30 days supply of medications(Lexapro 20 mg/day, Gabapetin 300 mg/bid) will be electronically transmitted to [facility] at [address] [place] [address]
[2019-01-29] MEDS: THIAMINE HCL 100 MG TABLET (FP) PO SCH (21:39)
[2019-01-29] MEDS: MELATONIN 5 MG TABLETS PO PRN (21:39)
[2019-01-29] MEDS: METHOCARBAMOL 500 MG TABLET PO PRN (21:40)
[2019-01-29] MEDS: hydrOXYzine PAMOATE 50 MG CAPSULE (FP) PO PRN (21:40)
[2019-01-30 07:17] VITALS: BP 115/72; PULSE 73; TEMP 98.1
--- NOTE | 2019-01-30 13:18 | DS ---
[facility] Rehab Discharge Summary - [facility] Rehab Discharge Summary Admission Date: 01/18/19 Discharge Date: 01/30/19 - History Present History: Alcohol dependence Additional Comments: Pt is a 38 y/o male who was admitted to rehab from detox and scheduled for discharge in the morning. Pt is requesting early discharge to enable him take his mother to her medical appointment. Pt has been referred to CD aftercare at [facility] on [address] Pt reports he has a primary care provider, Dr. Robb Carranza at [address] [place] [address]. Pertinent Past History: Eczema Pancreatitis PTSD Depression - Discharge Physical Exam Vital Signs: Vital Signs Temperature 98.1 F 01/30/19 07:16 Pulse Rate 73 01/30/19 07:16 Respiratory Rate 18 01/30/19 07:16 Blood Pressure 115/72 01/30/19 07:16 O2 Sat by Pulse Oximetry (%) Pertinent Admission Physical Exam Findings: Status unchanged from admission - Treatment Discharge Condition: Discharge condition good Hospital Course: Rehabilitated safely and responded well CD aftercare referral accepted - Medication Discharge Medications: Ambulatory Orders Glecaprevir/Pibrentasvir [Mavyret 100-40 mg Tablet] 3 tab PO DAILY 11/01/18 levETIRAcetam [Keppra -] 500 mg PO BID 01/13/19 Escitalopram Oxalate [Lexapro -] 20 mg PO DAILY #30 tablet 01/29/19 Gabapentin [Neurontin -] 300 mg PO BID #60 capsule 01/29/19 - Medication-Assisted Treatment (MAT) Medication-Assisted Treatment (MAT): No - Discharge Instructions Diet, activity, other medical instructions: Diet:Regular Activity: oob ad bassam Other medical instructions:follow up with Cd aftercare recommendation as scheduled. Follow up with primary care provider within 1 week after discharge. Make appointment as discussed and follow up with dermatology for chronic skin condition if reoccur. - Diagnosis (1) Alcohol dependence Status: Chronic Qualifiers: Substance use status: uncomplicated Qualified Code(s): F10.20 - Alcohol dependence, uncomplicated (2) Eczema Status: Chronic (3) Nicotine dependence Status: Chronic Qualifiers: Nicotine product type: cigarettes Substance use status: uncomplicated Qualified Code(s): F17.210 - Nicotine dependence, cigarettes, uncomplicated (4) History of pancreatitis Status: Resolved (5) Hepatitis C Status: Inactive Qualifiers: Viral hepatitis chronicity: unspecified (6) Hx of seizure disorder Status: Chronic - Follow-up Referral Minutes to complete discharge: 20 - AMA Did Patient Leave Against Medical Advice: No Additional Comments: Pt reported he has own keppra and Gabapentin at home and did not need new Rx on those.
== END 2019-01-30 07:33 | disposition home or self-care (01) | DRG 772 ==
LOC: YASAS 12:50 → Y5N 12:51
PROVIDERS: ADMIT Neuromusculoskeletal Medicine & OMM; ATTEND Neuromusculoskeletal Medicine & OMM
PROC: HZ42ZZZ Group Counseling for Substance Abuse Treatment, Cognitive-Behavioral (ICD-10-PCS; principal; 2019-01-18)
DX: F10.20 Alcohol dependence, uncomplicated (principal); F43.10 Post-traumatic stress disorder, unspecified; F32.9 Major depressive disorder, single episode, unspecified; K86.89 Other specified diseases of pancreas; G40.909 Epilepsy, unspecified, not intractable, without status epilepticus; L30.9 Dermatitis, unspecified

== ENCOUNTER 2020-08-31 13:49 | Inpatient (IN) | payer OTHER ==
[2020-08-31] MEDS ORDERED: MAG HYDROX/AL HYDROX/SIMETH 30 ML UNIT-DOSE CUP PO PRN (14:29)
[2020-08-31] MEDS ORDERED: ACETAMINOPHEN 325 MG TABLET (FP) PO PRN ×2 (14:29)
[2020-08-31] MEDS ORDERED: MENTHOL/PHENOL 1 EACH UD MM PRN (14:29)
[2020-08-31] MEDS ORDERED: diazePAM 5 MG TABLET PO ONE (14:29)
[2020-08-31] MEDS ORDERED: MAGNESIUM CITRATE 300 ML BOTTLE PO PRN (14:29)
[2020-08-31] MEDS ORDERED: BISMUTH SUBSALICYLATE 262 MG/15 ML BTL PO PRN (14:29)
[2020-08-31] MEDS ORDERED: MAGNESIUM HYDROX 2400MG/30ML ORAL SUSPENSION 30 ML CUP PO PRN (14:29)
[2020-08-31] MEDS ORDERED: NICOTINE POLACRILEX 2 MG GUM BUC PRN (14:29)
[2020-08-31 14:52] VITALS: BMI 25.7
[2020-08-31] MEDS: diazePAM 5 MG TABLET PO SCH ×2 (16:46→22:39)
[2020-08-31] MEDS: PRENATAL VITAMINS W/ FOLIC ACID TABLET (FP) PO SCH (16:48)
[2020-08-31] MEDS: hydrOXYzine PAMOATE 25 MG CAPSULE (FP) PO SCH ×3 (17:45→22:38)
[2020-08-31] MEDS: ONDANSETRON *ODT* 4 MG TABLET SL PRN (17:46)
[2020-08-31] MEDS: METHOCARBAMOL 500 MG TABLET PO PRN (19:33)
[2020-08-31] MEDS: HYDROCORTISONE 1% TOPICAL OINT 30 GM TUBE TP SCH (22:37)
[2020-08-31] MEDS: MELATONIN 5 MG TABLETS PO SCH (22:37)
[2020-08-31] MEDS: levETIRAcetam 500 MG TABLET (FP) PO SCH ×2 (22:37→22:54)
[2020-08-31] MEDS: THIAMINE HCL 100 MG TABLET (FP) PO SCH (22:38)
[2020-08-31] MEDS: GABAPENTIN 300 MG CAPSULE PO SCH ×2 (22:38→22:54)
[2020-09-01] MEDS: hydrOXYzine PAMOATE 25 MG CAPSULE (FP) PO SCH ×5 (06:11→22:47)
[2020-09-01] MEDS: diazePAM 5 MG TABLET PO SCH ×4 (06:11→22:47)
[2020-09-01] MEDS: ONDANSETRON *ODT* 4 MG TABLET SL PRN (06:13)
[2020-09-01] MEDS ORDERED: PATIENT'S OWN MEDICATION (NON-FORMULARY) (Glecaprevir/Pibrentasvir [Mavyret 100-40 Mg Tabl PO SCH (10:00)
[2020-09-01] MEDS: levETIRAcetam 500 MG TABLET (FP) PO SCH ×2 (10:18→22:46)
[2020-09-01] MEDS: ESCITALOPRAM OXALATE 20 MG TABLET PO SCH (10:18)
[2020-09-01] MEDS: GABAPENTIN 300 MG CAPSULE PO SCH ×2 (10:18→22:46)
[2020-09-01] MEDS: PRENATAL VITAMINS W/ FOLIC ACID TABLET (FP) PO SCH (10:19)
[2020-09-01] MEDS: HYDROCORTISONE 1% TOPICAL OINT 30 GM TUBE TP SCH ×2 (10:19→22:46)
[2020-09-01 13:40] LABS: HEMATOCRIT 38.6 % (35.4-49); HEMOGLOBIN 12.6 GM/dL (11.7-16.9); MCH 28.7 pg (25.7-33.7); MCHC 32.7 g/dl (32.0-35.9); MEAN CELL VOLUME 87.5 fl (80-96); MEAN PLT VOLUME 7.5 fl (7.5-11.1); PLATELET COUNT 276 10^3/uL (134-434); RBC 4.41 M/mm3 (4.00-5.60); RDW 16.7 % (11.9-15.9); WHITE BLOOD COUNT 5.1 K/mm3 (4.0-10.0)
[2020-09-01 13:47] LABS: CALCIUM 8.8 mg/dL (8.5-10.1)
[2020-09-01 13:48] LABS: ALBUMIN 3.9 g/dl (3.4-5.0); BLOOD UREA NITROGEN 11.4 mg/dL (7-18)
[2020-09-01 13:52] LABS: CREATININE 0.7 mg/dL (0.55-1.3)
[2020-09-01 13:53] LABS: TOT PROT 8.9 g/dl (6.4-8.2)
[2020-09-01 13:56] LABS: BILIRUBIN,TOTAL 1.4 mg/dL (0.2-1)
[2020-09-01 14:14] LABS: SICKLE CELL SCREEN NEGATIVE (NEGATIVE)
[2020-09-01 14:44] LABS: HIV INTERPRETATION NEGATIVE (NEGATIVE)
[2020-09-01] MEDS: diazePAM 5 MG TABLET PO PRN (15:15)
[2020-09-01] MEDS: THIAMINE HCL 100 MG TABLET (FP) PO SCH (22:46)
[2020-09-01] MEDS: MELATONIN 5 MG TABLETS PO SCH (22:46)
[2020-09-02] MEDS: diazePAM 5 MG TABLET PO SCH ×3 (05:21→22:28)
[2020-09-02] MEDS: hydrOXYzine PAMOATE 25 MG CAPSULE (FP) PO SCH ×5 (05:22→22:43)
[2020-09-02] MEDS: PRENATAL VITAMINS W/ FOLIC ACID TABLET (FP) PO SCH (10:35)
[2020-09-02] MEDS: GABAPENTIN 300 MG CAPSULE PO SCH ×2 (10:35→22:27)
[2020-09-02] MEDS: ESCITALOPRAM OXALATE 20 MG TABLET PO SCH (10:35)
[2020-09-02] MEDS: levETIRAcetam 500 MG TABLET (FP) PO SCH ×2 (10:35→22:27)
[2020-09-02] MEDS: diazePAM 5 MG TABLET PO PRN ×2 (10:37→17:29)
[2020-09-02] MEDS: HYDROCORTISONE 1% TOPICAL OINT 30 GM TUBE TP SCH ×2 (10:55→22:43)
[2020-09-02 11:16] LABS: INR 1.09 (0.83-1.09); PROTHROMBIN TIME (PATIENT) 13.1 SEC (9.7-13.0)
[2020-09-02 11:20] LABS: CALCIUM 8.7 mg/dL (8.5-10.1)
[2020-09-02 11:21] LABS: ALBUMIN 3.7 g/dl (3.4-5.0); BLOOD UREA NITROGEN 16.9 mg/dL (7-18)
[2020-09-02 11:23] LABS: CREATININE 0.7 mg/dL (0.55-1.3)
[2020-09-02 11:24] LABS: BILIRUBIN,TOTAL 0.9 mg/dL (0.2-1); TOT PROT 8.9 g/dl (6.4-8.2)
[2020-09-02] MEDS: MELATONIN 5 MG TABLETS PO SCH (22:27)
[2020-09-02] MEDS: THIAMINE HCL 100 MG TABLET (FP) PO SCH (22:27)
[2020-09-03] MEDS: diazePAM 5 MG TABLET PO SCH ×2 (05:38→17:45)
[2020-09-03] MEDS: hydrOXYzine PAMOATE 25 MG CAPSULE (FP) PO SCH ×5 (05:38→22:25)
[2020-09-03] MEDS ORDERED: SELENIUM SULFIDE 2.5% LOTION 4 OZ. TP SCH (10:00)
[2020-09-03] MEDS: HYDROCORTISONE 1% TOPICAL OINT 30 GM TUBE TP SCH ×2 (10:10→22:25)
[2020-09-03] MEDS: PRENATAL VITAMINS W/ FOLIC ACID TABLET (FP) PO SCH (10:10)
[2020-09-03] MEDS: levETIRAcetam 500 MG TABLET (FP) PO SCH ×2 (10:10→22:25)
[2020-09-03] MEDS: GABAPENTIN 300 MG CAPSULE PO SCH ×2 (10:10→22:25)
[2020-09-03] MEDS: ESCITALOPRAM OXALATE 20 MG TABLET PO SCH (10:10)
[2020-09-03] MEDS: METHOCARBAMOL 500 MG TABLET PO PRN (17:48)
[2020-09-03] MEDS: MELATONIN 5 MG TABLETS PO SCH (22:25)
[2020-09-03] MEDS: THIAMINE HCL 100 MG TABLET (FP) PO SCH (22:26)
[2020-09-04] MEDS: hydrOXYzine PAMOATE 25 MG CAPSULE (FP) PO SCH (05:26)
[2020-09-04] MEDS ORDERED: diazePAM 5 MG TABLET PO ONE (06:00)
[2020-09-04 09:52] VITALS: BP 115/74; PULSE 77; TEMP 98.1
== END 2020-09-04 10:42 | disposition home or self-care (01) | DRG 775 ==
LOC: YASAS 13:49 → Y6N 15:09
PROVIDERS: ADMIT Allergy & Immunology; ATTEND Allergy & Immunology
PROC: HZ2ZZZZ Detoxification Services for Substance Abuse Treatment (ICD-10-PCS; principal; 2020-08-31)
DX: F10.230 Alcohol dependence with withdrawal, uncomplicated (principal); F17.210 Nicotine dependence, cigarettes, uncomplicated; F10.280 Alcohol dependence with alcohol-induced anxiety disorder; F33.1 Major depressive disorder, recurrent, moderate; F10.282 Alcohol dependence with alcohol-induced sleep disorder; F43.10 Post-traumatic stress disorder, unspecified; L30.9 Dermatitis, unspecified; G40.509 Epileptic seizures related to external causes, not intractable, without status epilepticus; Z62.810 Personal history of physical and sexual abuse in childhood; Z87.19 Personal history of other diseases of the digestive system; Z86.19 Personal history of other infectious and parasitic diseases; Z98.890 Other specified postprocedural states; Z91.410 Personal history of adult physical and sexual abuse
CPT/HCPCS: 36415; 80053; 85027; 85610; 85660; 86780; 87389; C9803; Q0162; U0003; U0005

== ENCOUNTER 2023-05-01 12:01 | Inpatient (IN) | payer OTHER ==
[2023-05-01 12:51] VITALS: BMI 26.2
[2023-05-01] MEDS ORDERED: METHOCARBAMOL 500 MG TABLET PO PRN (15:21)
[2023-05-01] MEDS ORDERED: DICYCLOMINE HCL 10 MG CAPSULE PO PRN (15:21)
[2023-05-01] MEDS ORDERED: BENZOCAINE/MENTHOL (CHLORASEPTIC ) LOZENGE MM PRN (15:21)
[2023-05-01] MEDS ORDERED: BISMUTH SUBSALICYLATE 262 MG/15 ML BTL PO PRN (15:21)
[2023-05-01] MEDS ORDERED: LOPERAMIDE HCL 2 MG CAPSULE PO PRN (15:21)
[2023-05-01] MEDS ORDERED: ACETAMINOPHEN 325 MG TABLET (FP) PO PRN (15:21)
[2023-05-01] MEDS ORDERED: POLYETHYLENE GLYCOL (HEALTHYLAX) 3350 17 GM PACKET PO PRN (15:21)
[2023-05-01] MEDS ORDERED: guaiFENesin 600 MG TABLET.ER (FP) PO PRN (15:21)
[2023-05-01] MEDS ORDERED: NALOXONE HCL 0.4 MG/ML VIAL IM PRN (15:21)
[2023-05-01] MEDS ORDERED: NALOXONE HCL (KLOXXADO) 8 MG SPRAY NS PRN (15:21)
[2023-05-01] MEDS ORDERED: hydrOXYzine PAMOATE 25 MG CAPSULE (FP) PO PRN (15:21)
[2023-05-01] MEDS ORDERED: IBUPROFEN 400 MG TABLET (FP) PO PRN (15:21)
[2023-05-01] MEDS ORDERED: BENZONATATE 200 MG CAPSULE PO PRN (15:21)
[2023-05-01] MEDS ORDERED: MAG HYDROX/AL HYDROX/SIMETH 30 ML UNIT-DOSE CUP PO PRN (15:21)
[2023-05-01] MEDS ORDERED: IBUPROFEN 600 MG TABLET (FP) PO PRN (15:21)
[2023-05-01] MEDS: chlordiazePOXIDE HCL 25 MG CAPSULE PO PRN (15:47)
[2023-05-01] MEDS: ONDANSETRON *ODT* 4 MG TABLET SL PRN (17:22)
[2023-05-01] MEDS: chlordiazePOXIDE HCL 25 MG CAPSULE PO SCH (17:35)
[2023-05-01] MEDS: THIAMINE HCL 100 MG TABLET (FP) PO SCH (22:20)
[2023-05-01] MEDS: MELATONIN 5 MG TABLETS PO SCH (22:21)
[2023-05-02 10:34] LABS: HEMATOCRIT 40.1 % (35.4-49); HEMOGLOBIN 13.8 GM/dL (11.7-16.9); MCH 30.8 pg (25.7-33.7); MCHC 34.6 g/dl (32.0-35.9); MEAN CELL VOLUME 89.1 fl (80-96); PLATELET COUNT 242 10^3/uL (134-434); RBC 4.49 M/mm3 (4.00-5.60); RDW 13.6 % (11.9-15.9); WHITE BLOOD COUNT 5.5 K/mm3 (4.0-10.0)
[2023-05-02] MEDS: PRENATAL VITAMINS W/ FOLIC ACID TABLET (FP) PO SCH (10:39)
[2023-05-02] MEDS: levETIRAcetam 500 MG TABLET (FP) PO SCH (10:39)
[2023-05-02 13:03] LABS: CHLORIDE 106 mmol/L (98-107); POTASSIUM 3.8 mmol/L (3.5-5.1); SODIUM 143 mmol/L (136-145)
[2023-05-02 13:08] LABS: CALCIUM 8.9 mg/dL (8.5-10.1)
[2023-05-02 13:10] LABS: ALBUMIN 3.6 g/dl (3.4-5.0); ANION GAP 8 mmol/L (4-13); BLOOD UREA NITROGEN 11.3 mg/dL (7-18); CO2 29 mmol/L (21-32); GLUCOSE,RANDOM 103 mg/dL (74-106)
[2023-05-02 13:13] LABS: CREATININE 0.7 mg/dL (0.55-1.3); SGOT/AST 33 U/L (15-37); SGPT/ALT 29 U/L (13-61)
[2023-05-02 13:14] LABS: BILIRUBIN,TOTAL 0.5 mg/dL (0.2-1); TOT PROT 7.2 g/dl (6.4-8.2)
[2023-05-02 13:15] LABS: ALK PHOS 94 U/L (45-117)
[2023-05-02] MEDS ORDERED: LORazepam 1 MG TABLET PO PRN ×2 (15:19→15:31)
[2023-05-02] MEDS: ESCITALOPRAM OXALATE 20 MG TABLET PO SCH (15:40)
[2023-05-02] MEDS: LORazepam 2 MG TABLET PO SCH (17:16)
[2023-05-02] MEDS: QUEtiapine FUMARATE 100 MG TABLET (FP) PO SCH (22:17)
[2023-05-03] MEDS ORDERED: chlordiazePOXIDE HCL 25 MG CAPSULE PO SCH (05:00)
[2023-05-03] MEDS: LORazepam 1 MG TABLET PO SCH (05:26)
[2023-05-03] MEDS ORDERED: ESCITALOPRAM OXALATE 10 MG TABLET ONE (09:29)
[2023-05-03] MEDS ORDERED: PATIENT'S OWN MEDICATION (NON-FORMULARY) (Glecaprevir/Pibrentasvir [Mavyret 100-40 Mg Tabl PO SCH (10:00)
[2023-05-03] MEDS: GABAPENTIN 300 MG CAPSULE PO SCH (10:08)
[2023-05-04] MEDS ORDERED: LORazepam 0.5 MG TABLET PO PRN
[2023-05-04] MEDS ORDERED: chlordiazePOXIDE HCL 10 MG CAPSULE PO PRN
[2023-05-04] MEDS ORDERED: chlordiazePOXIDE HCL 10 MG CAPSULE PO SCH (05:00)
[2023-05-04] MEDS: LORazepam 0.5 MG TABLET PO SCH (05:13)
[2023-05-04] MEDS ORDERED: ESCITALOPRAM OXALATE 10 MG TABLET ONE (09:41)
[2023-05-04] MEDS: MAGNESIUM HYDROX 2400MG/30ML ORAL SUSPENSION 30 ML CUP PO PRN (17:35)
[2023-05-05] MEDS ORDERED: LORazepam 0.5 MG TABLET PO PRN
[2023-05-05] MEDS ORDERED: LORazepam 0.5 MG TABLET PO SCH (05:00)
[2023-05-05] MEDS ORDERED: chlordiazePOXIDE HCL 10 MG CAPSULE PO SCH (05:00)
[2023-05-05] MEDS: LORazepam 0.5 MG TABLET PO ONE (05:15)
[2023-05-05] MEDS ORDERED: ESCITALOPRAM OXALATE 10 MG TABLET ONE (09:35)
[2023-05-05 09:36] VITALS: TEMP 97.3
[2023-05-05 12:54] VITALS: BP 110/75; PULSE 74; RESP 20
[2023-05-06] MEDS ORDERED: chlordiazePOXIDE HCL 10 MG CAPSULE PO ONE (05:00)
[2023-05-06] MEDS ORDERED: LORazepam 0.5 MG TABLET PO ONE (05:00)
== END 2023-05-05 16:22 | disposition home or self-care (01) | DRG 775 ==
LOC: YASAS 12:01 → Y6N 15:57
PROVIDERS: ADMIT Allergy & Immunology; ATTEND Surgery
PROC: HZ2ZZZZ Detoxification Services for Substance Abuse Treatment (ICD-10-PCS; principal; 2023-05-01)
DX: F10.230 Alcohol dependence with withdrawal, uncomplicated (principal); F17.210 Nicotine dependence, cigarettes, uncomplicated; F33.1 Major depressive disorder, recurrent, moderate; G40.909 Epilepsy, unspecified, not intractable, without status epilepticus; G62.9 Polyneuropathy, unspecified; K21.9 Gastro-esophageal reflux disease without esophagitis; F10.282 Alcohol dependence with alcohol-induced sleep disorder; F10.280 Alcohol dependence with alcohol-induced anxiety disorder; F10.24 Alcohol dependence with alcohol-induced mood disorder; L30.9 Dermatitis, unspecified; Z87.19 Personal history of other diseases of the digestive system; Z62.810 Personal history of physical and sexual abuse in childhood
CPT/HCPCS: 36415; 80053; 80305; 80307; 85027; 86780; 87635; Q0162

== ENCOUNTER 2023-10-31 11:13 | Inpatient (IN) | payer OTHER ==
[2023-10-31 11:57] VITALS: BMI 25.7
[2023-10-31] MEDS ORDERED: BENZONATATE 200 MG CAPSULE PO PRN (12:07)
[2023-10-31] MEDS ORDERED: ONDANSETRON *ODT* 4 MG TABLET SL PRN (12:07)
[2023-10-31] MEDS ORDERED: IBUPROFEN 400 MG TABLET (FP) PO PRN (12:07)
[2023-10-31] MEDS ORDERED: MAG HYDROX/AL HYDROX/SIMETH 30 ML UNIT-DOSE CUP PO PRN (12:07)
[2023-10-31] MEDS ORDERED: POLYETHYLENE GLYCOL (HEALTHYLAX) 3350 17 GM PACKET PO PRN (12:07)
[2023-10-31] MEDS ORDERED: MAGNESIUM HYDROX 2400MG/30ML ORAL SUSPENSION 30 ML CUP PO PRN (12:07)
[2023-10-31] MEDS ORDERED: IBUPROFEN 600 MG TABLET (FP) PO PRN (12:07)
[2023-10-31] MEDS ORDERED: guaiFENesin 600 MG TABLET.ER (FP) PO PRN (12:07)
[2023-10-31] MEDS ORDERED: BENZOCAINE/MENTHOL (CHLORASEPTIC ) LOZENGE MM PRN (12:07)
[2023-10-31] MEDS ORDERED: DICYCLOMINE HCL 10 MG CAPSULE PO PRN (12:07)
[2023-10-31] MEDS ORDERED: BISMUTH SUBSALICYLATE 262 MG/15 ML BTL PO PRN (12:07)
[2023-10-31] MEDS ORDERED: LOPERAMIDE HCL 2 MG CAPSULE PO PRN (12:07)
[2023-10-31] MEDS ORDERED: chlordiazePOXIDE HCL 25 MG CAPSULE PO PRN (12:07)
[2023-10-31] MEDS ORDERED: ACETAMINOPHEN 325 MG TABLET (FP) ONE (12:51)
[2023-10-31] MEDS ORDERED: chlordiazePOXIDE HCL 25 MG CAPSULE ONE (12:51)
[2023-10-31] MEDS: ACETAMINOPHEN 325 MG TABLET (FP) PO PRN (12:57)
[2023-10-31] MEDS: chlordiazePOXIDE HCL 25 MG CAPSULE PO ONE (12:57)
[2023-10-31] MEDS: levETIRAcetam 500 MG TABLET (FP) PO SCH (12:59)
[2023-10-31] MEDS: chlordiazePOXIDE HCL 25 MG CAPSULE PO SCH (17:25)
[2023-10-31] MEDS: METHOCARBAMOL 500 MG TABLET PO PRN (22:14)
[2023-10-31] MEDS: THIAMINE 100 MG TABLET PO SCH (22:15)
[2023-10-31] MEDS: MELATONIN 5 MG TABLETS PO SCH (22:15)
[2023-11-01] MEDS: FLUoxetine HCL 20 MG CAPSULE PO SCH (09:59)
[2023-11-01] MEDS: PRENATAL VITAMINS W/ FOLIC ACID TABLET (FP) PO SCH (09:59)
[2023-11-01 11:31] LABS: POTASSIUM 3.9 mmol/L (3.5-5.1)
[2023-11-01 11:34] LABS: ALBUMIN 3.6 g/dl (3.4-5.0); BLOOD UREA NITROGEN 18.8 mg/dL (7-18); CALCIUM 9.3 mg/dL (8.5-10.1)
[2023-11-01 11:39] LABS: BILIRUBIN,TOTAL 0.4 mg/dL (0.2-1); TOT PROT 7.4 g/dl (6.4-8.2)
[2023-11-01 11:40] LABS: CREATININE 0.6 mg/dL (0.55-1.3)
[2023-11-01 11:57] LABS: HEMATOCRIT 38.3 % (35.4-49); HEMOGLOBIN 12.9 GM/dL (11.7-16.9); MCH 30.2 pg (25.7-33.7); MCHC 33.7 g/dl (32.0-35.9); MEAN CELL VOLUME 89.4 fl (80-96); MEAN PLT VOLUME 7.9 fl (7.5-11.1); PLATELET COUNT 204 10^3/uL (134-434); RBC 4.29 M/mm3 (4.00-5.60); WHITE BLOOD COUNT 6.5 K/mm3 (4.0-10.0)
[2023-11-02] MEDS: chlordiazePOXIDE HCL 25 MG CAPSULE PO SCH (05:46)
[2023-11-02 12:56] VITALS: BP 124/76; PULSE 62; RESP 16; TEMP 97.8
[2023-11-03] MEDS ORDERED: chlordiazePOXIDE HCL 10 MG CAPSULE PO PRN
[2023-11-03] MEDS ORDERED: chlordiazePOXIDE HCL 10 MG CAPSULE PO SCH (05:00)
[2023-11-04] MEDS ORDERED: chlordiazePOXIDE HCL 10 MG CAPSULE PO SCH (05:00)
[2023-11-05] MEDS ORDERED: chlordiazePOXIDE HCL 10 MG CAPSULE PO ONE (05:00)
== END 2023-11-02 15:05 | disposition left against medical advice (07) | DRG 770 ==
LOC: YASAS 11:13 → Y3N 12:32
PROVIDERS: ADMIT Allergy & Immunology; ATTEND Surgery
PROC: HZ2ZZZZ Detoxification Services for Substance Abuse Treatment (ICD-10-PCS; principal; 2023-10-31)
DX: F10.230 Alcohol dependence with withdrawal, uncomplicated (principal); F41.9 Anxiety disorder, unspecified; F32.A Depression, unspecified; B18.2 Chronic viral hepatitis C; G47.00 Insomnia, unspecified; Z87.19 Personal history of other diseases of the digestive system; Z87.891 Personal history of nicotine dependence; Z62.810 Personal history of physical and sexual abuse in childhood; Z91.410 Personal history of adult physical and sexual abuse
CPT/HCPCS: 36415; 80053; 80305; 85027; 86780

== ENCOUNTER 2024-05-02 14:08 | Inpatient (IN) | payer OTHER ==
[2024-05-02 15:04] VITALS: BMI 27.8
[2024-05-02] MEDS ORDERED: IBUPROFEN 400 MG TABLET (FP) PO PRN (17:33)
[2024-05-02] MEDS ORDERED: BENZONATATE 200 MG CAPSULE PO PRN (17:33)
[2024-05-02] MEDS ORDERED: IBUPROFEN 600 MG TABLET (FP) PO PRN (17:33)
[2024-05-02] MEDS ORDERED: MAG HYDROX/AL HYDROX/SIMETH 30 ML UNIT-DOSE CUP PO PRN (17:33)
[2024-05-02] MEDS ORDERED: LOPERAMIDE HCL 2 MG CAPSULE PO PRN (17:33)
[2024-05-02] MEDS ORDERED: guaiFENesin 600 MG TABLET.ER (FP) PO PRN (17:33)
[2024-05-02] MEDS ORDERED: NICOTINE POLACRILEX 2 MG LOZENGE BC PRN (17:33)
[2024-05-02] MEDS ORDERED: BENZOCAINE/MENTHOL (CHLORASEPTIC ) LOZENGE MM PRN (17:33)
[2024-05-02] MEDS ORDERED: DICYCLOMINE HCL 10 MG CAPSULE PO PRN (17:33)
[2024-05-02] MEDS ORDERED: ONDANSETRON *ODT* 4 MG TABLET SL PRN (17:33)
[2024-05-02] MEDS ORDERED: BISMUTH SUBSALICYLATE 524 MG/30 ML PO PRN (17:33)
[2024-05-02] MEDS ORDERED: NALOXONE (NARCAN) HCL 4 MG/0.1 ML SPRAY NS PRN (17:33)
[2024-05-02] MEDS ORDERED: NICOTINE POLACRILEX 2 MG GUM BUC PRN (17:33)
[2024-05-02] MEDS ORDERED: chlordiazePOXIDE HCL 25 MG CAPSULE ONE (17:44)
[2024-05-02] MEDS ORDERED: levETIRAcetam 500 MG TABLET (FP) PO ONE (17:44)
[2024-05-02] MEDS: chlordiazePOXIDE HCL 25 MG CAPSULE PO ONE (17:52)
[2024-05-02] MEDS: levETIRAcetam 500 MG TABLET (FP) PO ONE (17:52)
[2024-05-02] MEDS: propRANOLol HCL 10 MG TABLET PO ONE (19:22)
[2024-05-02] MEDS: levETIRAcetam 500 MG TABLET (FP) PO SCH (22:18)
[2024-05-02] MEDS: MELATONIN 5 MG TABLETS PO SCH (22:18)
[2024-05-02] MEDS: THIAMINE 100 MG TABLET PO SCH (22:18)
[2024-05-02] MEDS: chlordiazePOXIDE HCL 25 MG CAPSULE PO SCH (22:18)
[2024-05-03] MEDS: PRENATAL VITAMINS W/ FOLIC ACID TABLET (FP) PO SCH (09:54)
[2024-05-03] MEDS: GABAPENTIN 300 MG CAPSULE PO SCH (09:54)
[2024-05-03] MEDS: FLUoxetine HCL 20 MG CAPSULE PO SCH (10:03)
[2024-05-03 11:10] LABS: POTASSIUM 3.5 mmol/L (3.5-5.1)
[2024-05-03 11:14] LABS: ALBUMIN 3.7 g/dl (3.4-5.0); CALCIUM 8.9 mg/dL (8.5-10.1)
[2024-05-03 11:15] LABS: HEMATOCRIT 38.8 % (35.4-49); HEMOGLOBIN 13.3 GM/dL (11.7-16.9); MCHC 34.2 g/dl (32.0-35.9); MEAN CELL VOLUME 87.8 fl (80-96); MEAN PLT VOLUME 7.7 fl (7.5-11.1); PLATELET COUNT 212 10^3/uL (134-434); RBC 4.42 M/mm3 (4.00-5.60); RDW 13.8 % (11.9-15.9); WHITE BLOOD COUNT 4.6 K/mm3 (4.0-10.0)
[2024-05-03 11:17] LABS: CREATININE 0.7 mg/dL (0.55-1.3)
[2024-05-03 11:18] LABS: BILIRUBIN,TOTAL 0.4 mg/dL (0.2-1); TOT PROT 7.1 g/dl (6.4-8.2)
[2024-05-03] MEDS: chlordiazePOXIDE HCL 25 MG CAPSULE PO PRN (18:38)
[2024-05-03] MEDS: SUVOREXANT 5 MG TABLET PO PRN (22:10)
[2024-05-04] MEDS: chlordiazePOXIDE HCL 25 MG CAPSULE PO SCH (05:50)
[2024-05-04] MEDS: MAGNESIUM HYDROX 2400MG/30ML ORAL SUSPENSION 30 ML CUP PO PRN (18:00)
[2024-05-05] MEDS: chlordiazePOXIDE HCL 10 MG CAPSULE PO SCH (05:29)
[2024-05-05] MEDS: METHOCARBAMOL 500 MG TABLET PO PRN (10:02)
[2024-05-05] MEDS: chlordiazePOXIDE HCL 10 MG CAPSULE PO PRN (14:56)
[2024-05-05] MEDS: POLYETHYLENE GLYCOL (HEALTHYLAX) 3350 17 GM PACKET PO PRN (22:11)
[2024-05-06] MEDS: chlordiazePOXIDE HCL 10 MG CAPSULE PO SCH (05:16)
[2024-05-06] MEDS: ACETAMINOPHEN 325 MG TABLET (FP) PO PRN (14:32)
[2024-05-07] MEDS: chlordiazePOXIDE HCL 10 MG CAPSULE PO ONE (05:18)
[2024-05-07 08:44] VITALS: BP 130/86; PULSE 80; RESP 18; TEMP 98.9
== END 2024-05-07 10:15 | disposition home or self-care (01) | DRG 775 ==
LOC: YASAS 14:08 → Y3N 18:05
PROVIDERS: ADMIT Allergy & Immunology; ATTEND Allergy & Immunology
PROC: HZ2ZZZZ Detoxification Services for Substance Abuse Treatment (ICD-10-PCS; principal; 2024-05-02)
DX: F10.230 Alcohol dependence with withdrawal, uncomplicated (principal); F10.282 Alcohol dependence with alcohol-induced sleep disorder; F10.280 Alcohol dependence with alcohol-induced anxiety disorder; F10.24 Alcohol dependence with alcohol-induced mood disorder; F41.9 Anxiety disorder, unspecified; F32.A Depression, unspecified; B18.2 Chronic viral hepatitis C; K21.9 Gastro-esophageal reflux disease without esophagitis; R56.9 Unspecified convulsions; Z62.810 Personal history of physical and sexual abuse in childhood; Z87.19 Personal history of other diseases of the digestive system; Z86.69 Personal history of other diseases of the nervous system and sense organs
CPT/HCPCS: 36415; 80053; 80305; 80307; 85027; 86780; 93005; 93010

== ENCOUNTER 2024-12-16 12:02 | Inpatient (IN) | payer OTHER ==
[2024-12-16] MEDS ORDERED: NALOXONE (NARCAN) HCL 4 MG/0.1 ML SPRAY NS PRN (12:20)
[2024-12-16] MEDS ORDERED: ACETAMINOPHEN 325 MG TABLET (FP) PO PRN (12:20)
[2024-12-16] MEDS ORDERED: LOPERAMIDE HCL 2 MG CAPSULE PO PRN (12:20)
[2024-12-16] MEDS ORDERED: NICOTINE POLACRILEX 2 MG GUM BUC PRN (12:20)
[2024-12-16] MEDS ORDERED: BENZOCAINE/MENTHOL (CHLORASEPTIC ) LOZENGE MM PRN (12:20)
[2024-12-16] MEDS ORDERED: guaiFENesin 600 MG TABLET.ER (FP) PO PRN (12:20)
[2024-12-16] MEDS ORDERED: BENZONATATE 200 MG CAPSULE PO PRN (12:20)
[2024-12-16] MEDS ORDERED: DICYCLOMINE HCL 10 MG CAPSULE PO PRN (12:20)
[2024-12-16] MEDS ORDERED: NICOTINE POLACRILEX 2 MG LOZENGE BC PRN (12:20)
[2024-12-16] MEDS ORDERED: POLYETHYLENE GLYCOL (HEALTHYLAX) 3350 17 GM PACKET PO PRN (12:20)
[2024-12-16] MEDS ORDERED: BISMUTH SUBSALICYLATE 524 MG/30 ML PO PRN (12:20)
[2024-12-16] MEDS ORDERED: MAG HYDROX/AL HYDROX/SIMETH 30 ML UNIT-DOSE CUP PO PRN (12:20)
[2024-12-16] MEDS ORDERED: MAGNESIUM HYDROX 2400MG/30ML ORAL SUSPENSION 30 ML CUP PO PRN (12:20)
[2024-12-16] MEDS ORDERED: IBUPROFEN 400 MG TABLET (FP) PO PRN (12:20)
[2024-12-16] MEDS ORDERED: levETIRAcetam 500 MG TABLET (FP) PO ONE (12:24)
[2024-12-16] MEDS: levETIRAcetam 500 MG TABLET (FP) PO SCH (12:25)
[2024-12-16] MEDS ORDERED: MELATONIN 5 MG TABLETS PO SCH (22:00)
[2024-12-16] MEDS: SUVOREXANT 5 MG TABLET PO PRN (22:20)
[2024-12-16] MEDS: THIAMINE 100 MG TABLET PO SCH (22:21)
[2024-12-16] MEDS: traZODone HCL 50 MG TABLET (FP) PO SCH (22:21)
[2024-12-17] MEDS: PRENATAL VITAMINS W/ FOLIC ACID TABLET (FP) PO SCH (10:50)
[2024-12-17] MEDS: METHOCARBAMOL 500 MG TABLET PO PRN (17:16)
[2024-12-18] MEDS: IBUPROFEN 600 MG TABLET (FP) PO PRN (10:04)
[2024-12-18 11:34] LABS: MCHC 33.2 g/dl (32.3-36.5); MEAN CELL VOLUME 90.4 fl (79.0-92.2); MEAN PLT VOLUME 10.0 fl (9.4-12.4); RDW 13.2 % (12.1-15.9)
[2024-12-18 11:58] LABS: GLUCOSE,RANDOM 96 mg/dL (74-106); TOT PROT 7.1 g/dl (6.4-8.2)
[2024-12-18 11:59] LABS: CO2 26 mmol/L (21-32)
[2024-12-18 12:01] LABS: ALK PHOS 76 U/L (40-150)
[2024-12-18 12:04] LABS: CREATININE 0.62 mg/dL (0.55-1.3); SGOT/AST 44 U/L (5-34); SGPT/ALT 29 U/L (0-55)
[2024-12-18 12:59] LABS: HEPATITIS B SURF AG NON-MATERN NON-REACTIVE (NONREACTIVE)
[2024-12-18 15:19] LABS: HIV INTERPRETATION NEGATIVE (NEGATIVE)
[2024-12-19] MEDS: NALTREXONE HCL 50 MG TABLET PO ONE (15:39)
[2024-12-19] MEDS: ONDANSETRON *ODT* 4 MG TABLET SL PRN (17:32)
[2024-12-20] MEDS: NALTREXONE MICROSPHERES (VIVITROL) 380 MG DISP.SYRIN IM ONE (14:41)
[2024-12-20] MEDS: hydrOXYzine PAMOATE 25 MG CAPSULE (FP) PO PRN (17:27)
[2024-12-21 08:49] VITALS: BP 102/69; PULSE 87; RESP 16; TEMP 98.9
== END 2024-12-21 09:35 | disposition home or self-care (01) | DRG 775 ==
LOC: YASAS 12:02 → Y6N 12:56
PROVIDERS: ADMIT Neuromusculoskeletal Medicine & OMM; ATTEND Student in an Organized Health Care Education/Training Program
PROC: HZ2ZZZZ Detoxification Services for Substance Abuse Treatment (ICD-10-PCS; principal; 2024-12-16)
DX: F10.230 Alcohol dependence with withdrawal, uncomplicated (principal); K21.9 Gastro-esophageal reflux disease without esophagitis; F32.A Depression, unspecified; G40.909 Epilepsy, unspecified, not intractable, without status epilepticus; F17.210 Nicotine dependence, cigarettes, uncomplicated; F43.10 Post-traumatic stress disorder, unspecified
CPT/HCPCS: 36415; 80053; 80305; 80307; 85027; 86705; 86707; 86708; 86780; 86803; 87340; 87350; 87389; 87517; 87522; 93005; 93010; J2315; Q0162